=== PATIENT | male | born 1935 | race Two or more races ===

== ENCOUNTER 2019-12-16 05:13 | Observation (INO) | payer MEDICARE ==
--- NOTE | 2019-12-16 05:16 | ED ---
General Adult HPI - General Stated complaint: Blurred vision Time Seen by Provider: 12/16/19 05:16 - History of Present Illness Initial comments: Robbi is an 84 yo male who is brought to the ER this morning by ambulance for evaluation of vision changes and headaches. Patient is somewhat of a poor historian he does state that he has poor vision he is supposed to wear glasses he was not wearing his glasses this morning. He states that his vision is been chronically worsening recently however he got up in 3am to use the restroom, states that he couldn't see anything. He states that now he feels like he can see light and shapes. 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 states the patient has had bad eyesite since a cataract procedure years ago, she states he developed "water in his eyes" She states he has not followed up with Opthalmology in >1 year - Related Data Allergies Allergy/AdvReac Type Severity Reaction Status Date / Time No Known Allergies Allergy Verified 12/16/19 05:35 Review of Systems ROS Statement: Those systems with pertinent positive or pertinent negative responses have been documented in the HPI. ROS Other: All systems not noted in ROS Statement are negative. General Exam - General Exam Comments Initial Comments: Physical Exam GENERAL: Patient is well-developed and well-nourished. Patient is nontoxic and well-hydrated and is in no distress. HENT: Normocephalic, Atraumatic. EYES: PERRL, EOMI No retinal hemorrhage Pressure LEFT eye: 14, 14, 16 Pressure RIGHT eye: 16, 17, 17 Vision left eye: 2/70 Vision right eye: 20/50 PULMONARY: Unlabored respirations. CARDIOVASCULAR: There is a regular rate and rhythm without any murmurs gallops or rubs. ABDOMEN: Soft and nontender with normal bowel sounds. SKIN: Skin is clear with no lesions or rashes and otherwise unremarkable. : Deferred NEUROLOGIC: Patient is alert and oriented x3. Moving all extremities spontaneously MUSCULOSKELETAL: Normal extremities with adequate strength and full range of motion. No lower extremity swelling or edema. No calf tenderness. PSYCHIATRIC: Normal psychiatric evaluation. Course Vital Signs 12/16/19 12/16/19 05:27 07:18 Temperature 97.3 F L Pulse Rate 65 63 Respiratory 18 18 Rate Blood Pressure 176/74 156/78 O2 Sat by Pulse 97 98 Oximetry EKG Findings - EKG Comments: EKG Findings:: EKG was obtained as part of a stroke workup, EKG was obtained at 5:37 AM, rate of 61 rhythm is sinus with a right bundle branch block, GA prolonged at 198, QRS 154, QTC [address] elevations or depressions no evidence of acute ischemia or infarction. No previous for comparison. Medical Decision Making - Medical Decision Making The patient was seen and evaluated history is obtained from the patient, EMS and 84-year-old gentleman with what appears to be chronic vision issues she reported may be a transient loss of vision this morning when ambulating to the restroom, no lightheadedness to chest pain no palpitations no syncopal episode Patient reports his vision is still bad but has improved since 3 AM Patient also complains of a chronic headache As ago exam reveals an elderly gentleman in no acute distress, pupils are equal and round he has had cataract surgery Pressures are normal bilaterally CT and CTA resulted with chronic changes, no acute findings, Carotid stenosis 65% and 35% Patient care discussed with Dr Osorio who accepts admission with consults to neurology and ophthalmology - Lab Data Result diagrams: 12/16/19 05:34 12/16/19 05:34 Lab Results 12/16/19 12/16/19 12/16/19 Range/Units 05:34 05:34 05:34 WBC 7.6 (3.8-10.6) k/uL RBC 4.75 (4.30-5.90) m/uL Hgb 14.2 (13.0-17.5) gm/dL Hct 43.2 (39.0-53.0) % MCV 91.0 (80.0-100.0) fL MCH 29.9 (25.0-35.0) pg MCHC 32.8 (31.0-37.0) g/dL RDW 13.6 (11.5-15.5) % Plt Count 192 (150-450) k/uL Neutrophils % 68 % Lymphocytes % 20 % Monocytes % 6 % Eosinophils % 3 % Basophils % 0 % Neutrophils # 5.2 (1.3-7.7) k/uL Lymphocytes # 1.5 (1.0-4.8) k/uL Monocytes # 0.5 (0-1.0) k/uL Eosinophils # 0.2 (0-0.7) k/uL Basophils # 0.0 (0-0.2) k/uL PT 10.8 (9.0-12.0) sec INR 1.0 (<1.2) APTT 22.1 (22.0-30.0) sec Sodium 140 (137-145) mmol/L Potassium 4.3 (3.5-5.1) mmol/L Chloride 105 (98-107) mmol/L Carbon Dioxide 26 (22-30) mmol/L Anion Gap 9 mmol/L BUN 13 (9-20) mg/dL Creatinine 0.99 (0.66-1.25) mg/dL Est GFR (CKD-EPI)AfAm 81 (>60 ml/min/1.73 sqM) Est GFR (CKD-EPI)NonAf 70 (>60 ml/min/1.73 sqM) Glucose 146 H (74-99) mg/dL Calcium 9.6 (8.4-10.2) mg/dL Total Bilirubin 0.8 (0.2-1.3) mg/dL AST 35 (17-59) U/L ALT 19 (4-49) U/L Alkaline Phosphatase 69 (38-126) U/L Total Protein 7.8 (6.3-8.2) g/dL Albumin 4.8 (3.5-5.0) g/dL Disposition Clinical Impression: Vision loss, bilateral Disposition: ADMITTED IP TO THIS [facility] Condition: Stable Is patient prescribed a controlled substance at d/c from ED?: No Referrals: None,Stated [Primary Care Provider] - 1-2 days
[2019-12-16] MEDS ORDERED: PROPARACAINE 0.5% OPHTH DROPS 15 ML BTL BOTH EYES STA (05:31)
[2019-12-16 05:39] LABS: Basophils % (A) 0 %; Eosinophils # (A) 0.2 k/uL (0-0.7); Eosinophils % (A) 3 %; HCT 43.2 % (39.0-53.0); HGB 14.2 gm/dL (13.0-17.5); Lymphocytes # (A) 1.5 k/uL (1.0-4.8); Lymphocytes % (A) 20 %; MCH 29.9 pg (25.0-35.0); MCHC 32.8 g/dL (31.0-37.0); Mean Platelet Volume 7.7; Monocytes # (A) 0.5 k/uL (0-1.0); Monocytes % (A) 6 %; Neutrophils # (A) 5.2 k/uL (1.3-7.7); Neutrophils % (A) 68 %; Platelet Count 192 k/uL (150-450); RBC 4.75 m/uL (4.30-5.90); RDW 13.6 % (11.5-15.5); WBC 7.6 k/uL (3.8-10.6)
[2019-12-16 05:49] LABS: Partial Thromboplastin Time 22.1 sec (22.0-30.0); Prothrombin Time 10.8 sec (9.0-12.0)
[2019-12-16 05:50] LABS: Albumin 4.8 g/dL (3.5-5.0); Calcium 9.6 mg/dL (8.4-10.2); Potassium 4.3 mmol/L (3.5-5.1); Total Bilirubin 0.8 mg/dL (0.2-1.3); Total Protein 7.8 g/dL (6.3-8.2)
--- NOTE | 2019-12-16 06:54 | CT ---
EXAMINATION TYPE: CT brain wo con DATE OF EXAM: 12/16/2019 COMPARISON: None HISTORY: Neuro deficit, acute, stroke suspected CT DLP: 1089 mGycm Automated exposure control for dose reduction was used. Ventricles are top normal in size. There is some patchy hypodensity in the periventricular white jamaal er. There is no mass effect nor midline shift. There is no sign of intracranial hemorrhage. The main rium is intact. There is mild cerebral atrophy. IMPRESSION: Mild atrophy. Chronic small vessel ischemia. No acute intracranial abnormality.
--- NOTE | 2019-12-16 07:06 | CT ---
EXAMINATION TYPE: CT angio head neck DATE OF EXAM: 12/16/2019 COMPARISON: None HISTORY: Loss of vision CT DLP: mGycm Automated exposure control for dose reduction was used. CONTRAST: Performed , patient injected with mL of . The contrast was Isovue. There are 3-D post processed images. FINDINGS: There is normal branching pattern of the vessels on the aortic arch. There is bilateral arterial flow in the subclavian arteries. There is arterial flow in both vertebral arteries. There is arterial ladonna w in the common internal and external carotid arteries bilaterally. There is bilateral plaque formati on at the carotid artery bifurcations. There is estimated 60% stenosis due to plaque formation at the origin of the right internal carotid artery. There is approximate 35% stenosis origin of the left in ternal carotid artery. There is no evidence of carotid or vertebral artery aneurysm or dissection. There is arterial flow in the vertebrobasilar artery system. There is arterial flow in the anterior m iddle and posterior cerebral arteries bilaterally. There is normal contrast opacification of the veno us sinuses. There is no mass effect. There is no sign of intracranial aneurysm or neovascularity. I s ee no evidence of intracranial hemodynamic stenosis. IMPRESSION: Atherosclerotic plaque at the carotid artery bifurcations with estimated stenosis 60% on the right si de and 35% on the left side. No intracranial angiographic abnormality.
[2019-12-16] MEDS ORDERED: NALOXONE 0.4 MG/ML 1 ML VIAL IV PRN (07:50)
[2019-12-16] MEDS ORDERED: lisinopriL 20 MG TAB PO SCH (11:15)
[2019-12-16 11:34] LABS: Glucose,Whole Blood 172 mg/dL (75-99)
--- NOTE | 2019-12-16 13:30 | P.DS ---
Providers Date of admission: 12/16/19 07:54 Attending physician: Carson Walker Consults: 12/16/19 07:50 Consult Physician Urgent Consulting Provider: Jacques Torres Consult Reason/Comments: acute vision loss, improved upon arrival Do you want consulting provider notified?: Yes 12/16/19 07:56 Consult Physician Urgent Consulting Provider: Diego Morales Consult Reason/Comments: vision loss Do you want consulting provider notified?: Yes, Notify in am Primary care physician: Stated None Hospital Course: Please refer to HPI for further details Patient Condition at Discharge: Stable Plan - Discharge Summary Discharge Rx Participant: No New Discharge Prescriptions: New Clopidogrel Bisulfate [Plavix] 75 mg PO DAILY #30 tab Continue metFORMIN HCL [Glucophage] 500 mg PO HS lisinopriL 20 mg PO DAILY Metoprolol Tartrate [Lopressor] 50 mg PO HS Cholecalciferol [Vitamin D3 (25 Mcg = 1000 Iu)] 2,000 unit PO HS Aspirin EC [Ecotrin Low Dose] 81 mg PO HS amLODIPine [Norvasc] 5 mg PO HS Atorvastatin [Lipitor] 20 mg PO HS Discharge Medication List Aspirin EC [Ecotrin Low Dose] 81 mg PO HS 12/16/19 [History] Atorvastatin [Lipitor] 20 mg PO HS 12/16/19 [History] Cholecalciferol [Vitamin D3 (25 Mcg = 1000 Iu)] 2,000 unit PO HS 12/16/19 [History] Clopidogrel Bisulfate [Plavix] 75 mg PO DAILY #30 tab 12/16/19 [Rx] Metoprolol Tartrate [Lopressor] 50 mg PO HS 12/16/19 [History] amLODIPine [Norvasc] 5 mg PO HS 12/16/19 [History] lisinopriL 20 mg PO DAILY 12/16/19 [History] metFORMIN HCL [Glucophage] 500 mg PO HS 12/16/19 [History] Follow up Appointment(s)/Referral(s): Diego Morales MD [STAFF PHYSICIAN] - 1-2 Days None,Stated [Primary Care Provider] - 3 Days
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
[2019-12-16] MEDS: CLOPIDOGREL 75 MG TAB PO SCH (13:44)
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
--- NOTE | 2019-12-16 16:51 | CONS ---
CONSULTATION DATE OF SERVICE: 12/16/2019 at 2:45 pm. HISTORY: This is an 84-year-old white male who states that he woke up at 3:30 in the morning to urinate. After completing the task at hand, he went to return to his room and noticed that his vision was blurry in both eyes, spontaneously. The patient states that he could tell that the light was still on, though could not make out any shapes or anything of significance. The patient stated that both eyes were open when this occurred and the vision remained obscured for several hours after that. He was transported to the hospital where the vision slowly improved and upon awakening, the patient states that the vision has returned to its baseline level that he is accustomed to. The patient states that he has had continuing headaches since then along with one in the posterior aspect of his brain. PREVIOUS MEDICAL HISTORY: Significant for bilateral cataract surgery performed by Dr. 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 The history was also significant for diabetes. PHYSICAL EXAM: Visual acuity measured 20/50 right eye and 20/40 left eye. The pupils were equal and reactive to light. There was no afferent defect. Extraocular movements were full in all gaze positions. Visual wilson appeared full to confrontation testing with the exception of the right eye, upper right quadrant, appearing somewhat diminished during the exam today. On penlight exam, the lids were normal. There was a fallen lacrimal gland present on both the temporal aspect of both upper lids. The conjunctiva was quiet. The corneas were clear. The anterior chambers were quiet and bilateral posterior chamber intra-ocular lenses were noted in both eyes. IMPRESSION: 1. Temporary vision loss. As this patient's symptoms occurred bilaterally and simultaneously, it is very likely this represents something taking place in the brain and specifically in the one of the vision pathways or in the posterior aspect where the vision is interpreted. I would recommend an evaluation for the possibility of a TIA and/or evaluate stroke risks to see if the blood flow to the brain is at risk of interruption. I would also continue with his anticoagulant treatment until the tests have been completed. I will be happy to see this patient upon discharge where a more formal visual field test can be performed. Of course, I would also need to see records from Dr. Figueredo's office. The patient tells me that he has no desire to return to Dr. Figueredo's office again. 2. Diabetic retinopathy. The patient states that he has had fluid leakage "in the back of both eyes due to diabetes" and this quite possibly represents macular edema. Again, I would need to perform more thorough testing in my office in order to determine if he needs intervention at this time. Thank you very much for this consult. NATASHA / ANGELINA: [id number] /
--- NOTE | 2019-12-16 17:00 | ECHOF ---
Referral Reason:TIA, vision loss MEASUREMENTS -------- HEIGHT: 165.1 cm WEIGHT: 73.5 kg BP: IVSd: 1.1 cm (0.6 - 1.1) LVIDd: 4.6 cm (3.9 - 5.3) LVPWd: 1.3 cm (0.6 - 1.1) EDV(Teich): 96 ml IVSs: 1.6 cm LVIDs: 2.4 cm LVPWs: 1.5 cm %IVS Thck: 47 % ESV(Teich): 19 ml EF(Teich): 80 % %FS: 48 % SV(Teich): 77 ml IVC: 8.42 mm Ao Diam: 3.3 cm (2.0 - 3.7) LA Diam: 2.8 cm (2.7 - 3.8) EPSS: 2.3 cm MV E Everton: 0.56 m/s MV DecT: 242 ms MV Dec Wolfe: 2.3 m/s MV A Everton: 1.02 m/s MV E/A Ratio: 0.54 MV PHT: 70 ms MR Vmax: 1.72 m/s MR maxP.89 mmHg AV Vmax: 1.21 m/s AV maxP.82 mmHg AR Vmax: 1.73 m/s AR maxP.93 mmHg AR PHT: 723 ms AR Dec Time: 2492 ms AR Dec Wolfe: 0.7 m/s TR Vmax: 1.27 m/s TR maxP.42 mmHg RAP: 5.00 mmHg RVSP: 11.42 mmHg MV EF SLOPE: 115.61 mm/s (70 - 150) MV EXCURSION: 25.14 mm (> 18.000) FINDINGS -------- This was a technically difficult study with suboptimal views. The left ventricular size is normal. There is borderline concentric left ventricular hypertrophy. Overall left ventricular systolic function is normal with, an EF between 55 - 60 %. The right ventricle is normal in size. The left atrial size is normal. The right atrial size is normal. 5.0mg of Lumason was utilized for enhancement of images IAS not well Visualized. Poor quality images, Bubble study not performed. The aortic valve is trileaflet and appears structurally normal. The mitral valve is normal. There is trace mitral regurgitation. The tricuspid valve appears structurally normal. Trace tricuspid regurgitation present. Right umer tricular systolic pressure is normal at < 35 mmHg. There is no pulmonic regurgitation present. The aortic root size is normal. Normal inferior vena cava with normal inspiratory collapse consistent with estimated right atrial pre ssure of 5 mmHg. There is no pericardial effusion. CONCLUSIONS -------- 1. The left ventricular size is normal. 2. There is borderline concentric left ventricular hypertrophy. 3. Overall left ventricular systolic function is normal with, an EF between 55 - 60 %. 4. IAS not well Visualized. Poor quality images, Bubble study not performed. 5. There is trace mitral regurgitation. 6. Trace tricuspid regurgitation present. 7. There is no pericardial effusion. [employer]MENT CHAIR: Valentine Wolfe RDCS
[2019-12-16 17:03] LABS: Glucose,Whole Blood 129 mg/dL (75-99)
[2019-12-16 21:17] LABS: Glucose,Whole Blood 115 mg/dL (75-99)
[2019-12-16] MEDS: CHOLECALCIFEROL 1,000 UNIT TAB PO SCH (21:17)
[2019-12-16] MEDS: METOPROLOL TARTRATE 50 MG TAB PO SCH (21:17)
[2019-12-16] MEDS: ATORVASTATIN 20 MG TAB PO SCH (21:17)
[2019-12-16] MEDS: ASPIRIN 81 MG PO SCH (21:17)
[2019-12-16] MEDS: metFORMIN 500 MG TAB PO SCH (21:17)
[2019-12-16] MEDS: lisinopriL 20 MG TAB PO SCH (21:17)
[2019-12-16] MEDS: amLODIPine 5 MG TAB PO SCH (21:17)
[2019-12-16 21:21] LABS: Hemoglobin A1C 6.3 % (4.0-6.0)
[2019-12-17 06:06] LABS: Glucose,Whole Blood 135 mg/dL (75-99)
[2019-12-17 08:59] LABS: Cholesterol 127 mg/dL (<200); HDL Cholesterol 42 mg/dL (40-60); LDL Cholesterol,Calculated 47 mg/dL (0-99); Triglycerides 192 mg/dL (<150)
[2019-12-17] MEDS: CLOPIDOGREL 75 MG TAB PO SCH (09:23)
--- NOTE | 2019-12-17 10:31 | XR ---
EXAMINATION TYPE: XR chest 2V DATE OF EXAM: 12/17/2019 COMPARISON: NONE TECHNIQUE: PA and lateral views submitted. HISTORY: Pneumonia FINDINGS: The lungs are clear and there is no pneumothorax, pleural effusion, or focal pneumonia. Arthropathy of the shoulders. No overt failure. No pneumothorax. No pleural effusion. Hyperinflation suggests CO PD. Hypertrophic and degenerative change of the spine. IMPRESSION: 1. No acute process. Correlate for COPD.
--- NOTE | 2019-12-17 10:32 | P.DS ---
Providers Date of admission: 12/16/19 07:54 Attending physician: Carson Walker Consults: 12/16/19 07:50 Consult Physician Urgent Consulting Provider: Jacques Torres Consult Reason/Comments: acute vision loss, improved upon arrival Do you want consulting provider notified?: Yes 12/16/19 07:56 Consult Physician Urgent Consulting Provider: Diego Morales Consult Reason/Comments: vision loss Do you want consulting provider notified?: Yes, Notify in am Primary care physician: Stated None Hospital Course: 84-year-old was male came in with the complaints of her transient loss of vision or blurry vision predominantly in the left eye. Patient is also comparing of headache all the symptoms resolved at this time. Patient did have significant visual issues I issues in the past patient had cataract surgeries in both eyes. Patient's symptoms only lasted for a few minutes patient denied any weakness. Patient had ESR of less than 5. Patient denied any nausea vomiting. Patient did complaining of watering and ice but this is something chronic. Patient denied any floaters denied any curtain falling sensation. 12/17/2019 Patient was evaluated by neurology and ophthalmology an ophthalmology place patient may have possible vascular accident because of which patient underwent workup for that, echocardiac exam is within normal limits CT angios of the cavitates did show some atherosclerotic occlusive disease but not significant. That it needs intervention. If cleared by neurology patient will be discharged today as we cannot get an MRI because of shortness limb his eyes from accident in the past. Plavix was added and patient already takes aspirin at home. Although patient is having some hallucinations which appeared to be tactile hallucinations no clinical evidence of infection I'll obtain a chest x-ray and if Normal patient will be discharged and. Patient is not on any medications that can cause hallucinations. Lisa lesions may be related to hospitalization related delirium expected to improve upon discharge. PHYSICAL EXAMINATION: GENERAL: The patient is alert and oriented x3, not in any acute distress. Well developed, well nourished. HEENT: Pupils are round and equally reacting to light. EOMI. No scleral icterus. No conjunctival pallor. Normocephalic, atraumatic. No pharyngeal erythema. No thyromegaly. CARDIOVASCULAR: S1 and S2 present. No murmurs, rubs, or gallops. PULMONARY: Chest is clear to auscultation, no wheezing or crackles. ABDOMEN: Soft, nontender, nondistended, normoactive bowel sounds. No palpable organomegaly. MUSCULOSKELETAL: No joint swelling or deformity. EXTREMITIES: No cyanosis, clubbing, or pedal edema. NEUROLOGICAL: Gross neurological examination did not reveal any focal deficits. SKIN: No rashes. Assessment and Plan Plan: -Transiant sensation of visual loss: Patient underwent workup for stroke so far negative although patient is again did show some 60% stenosis on the right side and 35% stenosis on the left side in carotids patient was evaluated in neurology patient may have transient ischemic attack patient was started on Plavix in addition to aspirin he is taking at home, patient was a valid by ophthalmology. -Coronary artery disease Type 2 diabetes mellitus Gastroesophageal reflux disease -Hypertension -Benign prostatic hypertrophy -Possible Hospitalization related delirium Patient Condition at Discharge: Stable Plan - Discharge Summary Discharge Rx Participant: No New Discharge Prescriptions: New Clopidogrel Bisulfate [Plavix] 75 mg PO DAILY #30 tab Continue metFORMIN HCL [Glucophage] 500 mg PO HS lisinopriL 20 mg PO DAILY Metoprolol Tartrate [Lopressor] 50 mg PO HS Cholecalciferol [Vitamin D3 (25 Mcg = 1000 Iu)] 2,000 unit PO HS Aspirin EC [Ecotrin Low Dose] 81 mg PO HS amLODIPine [Norvasc] 5 mg PO HS Atorvastatin [Lipitor] 20 mg PO HS Discharge Medication List Aspirin EC [Ecotrin Low Dose] 81 mg PO HS 12/16/19 [History] Atorvastatin [Lipitor] 20 mg PO HS 12/16/19 [History] Cholecalciferol [Vitamin D3 (25 Mcg = 1000 Iu)] 2,000 unit PO HS 12/16/19 [History] Clopidogrel Bisulfate [Plavix] 75 mg PO DAILY #30 tab 12/16/19 [Rx] Metoprolol Tartrate [Lopressor] 50 mg PO HS 12/16/19 [History] amLODIPine [Norvasc] 5 mg PO HS 12/16/19 [History] lisinopriL 20 mg PO DAILY 12/16/19 [History] metFORMIN HCL [Glucophage] 500 mg PO HS 12/16/19 [History] Follow up Appointment(s)/Referral(s): Caro Virgen MD [REFERRING] - 1 Week (Neurologist - office will call you with a follow up appointment. ) Diego Morales MD [STAFF PHYSICIAN] - 12/18/19 10:15 am ([place] office for this appointment. [address], right next to [facility]. ) Marcio Stein DO [Doctor of Osteopathic Medicine] - 12/22/19 9:20 am Patient Instructions/Handouts: Transient Ischemic Attack (DC), Safe Use of Antiplatelet Medication (DC) Discharge Disposition: HOME SELF-CARE
[2019-12-17 11:58] LABS: Glucose,Whole Blood 138 mg/dL (75-99)
[2019-12-17 13:40] VITALS: BMI 26.2
[2019-12-17 13:46] LABS: Appearance,Urine Cloudy (Clear); Bacteria,Urine Rare /hpf; Bilirubin,Urine Negative (Negative); Blood,Urine Small (Negative); Color,Urine Yellow; Glucose,Urine (UA) Negative (Negative); Hyaline Casts,Urine 6 /lpf (0-2); Ketones,Urine Trace (Negative); Leukocyte Esterase,Urine Negative (Negative); Mucus,Urine Moderate /hpf; Nitrite,Urine Negative (Negative); Protein,Urine 1+ (Negative); RBC,Urine 1 /hpf (0-5); Specific Gravity,Urine 1.027 (1.001-1.035); Squamous Epithelial Cell,Urine <1 /hpf (0-4); WBC,Urine 4 /hpf (0-5)
[2019-12-17 16:42] LABS: Glucose,Whole Blood 156 mg/dL (75-99)
--- NOTE | 2019-12-17 17:21 | CT ---
EXAMINATION TYPE: CT brain wo con DATE OF EXAM: 12/17/2019 COMPARISON: Yesterday HISTORY: ams, confusion CT DLP: 1091.4 mGycm Automated exposure control for dose reduction was used. There is cerebral cortical atrophy. There is no mass effect nor midline shift. There is no sign of in tracranial hemorrhage. The calvarium is intact. Skull base is intact. There is some mild hypodensity in the periventricular white matter. IMPRESSION: Cerebral atrophy. Mild chronic small vessel ischemia. No change compared to yesterday.
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
[2019-12-17] MEDS ORDERED: LORazepam 2 MG/ML INJ IV PRN (18:27)
[2019-12-17 20:00] LABS: Glucose,Whole Blood 124 mg/dL (75-99)
[2019-12-17] MEDS: ATORVASTATIN 20 MG TAB PO SCH (20:14)
[2019-12-17] MEDS: METOPROLOL TARTRATE 50 MG TAB PO SCH (20:14)
[2019-12-17] MEDS: amLODIPine 5 MG TAB PO SCH (20:15)
[2019-12-17] MEDS: lisinopriL 20 MG TAB PO SCH (20:15)
[2019-12-17] MEDS: ASPIRIN 81 MG PO SCH (20:15)
[2019-12-17] MEDS: metFORMIN 500 MG TAB PO SCH (20:15)
[2019-12-17] MEDS: CHOLECALCIFEROL 1,000 UNIT TAB PO SCH (20:15)
[2019-12-18 06:11] LABS: Glucose,Whole Blood 119 mg/dL (75-99)
[2019-12-18 09:40] VITALS: PULSE 68
[2019-12-18] MEDS: CLOPIDOGREL 75 MG TAB PO SCH (10:14)
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
[2019-12-18 11:57] VITALS: BP 164/74; RESP 16; TEMP 97.6
[2019-12-18 12:14] LABS: Glucose,Whole Blood 107 mg/dL (75-99)
[2019-12-18] MEDS ORDERED: risperiDONE 0.5 MG TAB PO PRN (13:48)
--- NOTE | 2019-12-18 13:51 | P.PN ---
Subjective Progress Note Date: 12/18/19 Patient was seen for a follow-up. Patient's family members were not present. Patient very emotional, crying. He states that he was feeling the sensation of tunnel explosion that happened over 28 years ago. Patient has PTSD. Patient was actively hallucinating last night. No other focal symptoms. No slurred speech facial droop focal numbness tingling or weakness. No headaches. Patient's telemetry monitoring showing normal sinus rhythm with sinus bradycardia. Current blood sugar 183. Objective - Vital Signs Vital signs: Vital Signs Temp 97.6 F 12/18/19 11:55 Pulse 68 12/18/19 11:55 Resp 16 12/18/19 11:55 BP 164/74 12/18/19 11:55 Pulse Ox 96 12/18/19 11:55 Intake & Output 12/17/19 12/18/19 12/18/19 18:59 06:59 18:59 Intake Total 240 Output Total 50 Balance -50 240 Weight 71.3 kg 70.6 kg Intake: Oral 240 Output: Urine 50 Other: # Voids 1 1 - Exam Patient's mental status appears intact with normal level of alertness. Patient is very emotional, crying, depressed. He has history of PTSD. Patient's pupils are round and reacting. Visual wilson are full on confrontation with no neglect. Patient has mild right facial asymmetry, although patient's son states is his baseline. On muscle strength testing there is no drift and the strength is normal in arms and legs no ataxia. Sensations are equal with no neglect. Tone and bulk of muscles and gait normal. - Labs CBC & Chem 7: 12/16/19 05:34 12/16/19 05:34 Labs: Abnormal Lab Results - Last 24 Hours (Table) 12/17/19 12/17/19 12/17/19 Range/Units 13:20 16:41 19:58 POC Glucose (mg/dL) 156 H 124 H (75-99) mg/dL Urine Protein 1+ H (Negative) Urine Ketones Trace H (Negative) Urine Blood Small H (Negative) Urine Bacteria Rare H (None) /hpf Hyaline Casts 6 H (0-2) /lpf Urine Mucus Moderate H (None) /hpf 12/18/19 12/18/19 Range/Units 06:09 11:25 POC Glucose (mg/dL) 119 H 107 H (75-99) mg/dL Urine Protein (Negative) Urine Ketones (Negative) Urine Blood (Negative) Urine Bacteria (None) /hpf Hyaline Casts (0-2) /lpf Urine Mucus (None) /hpf Assessment and Plan Assessment: * Possible TIA manifesting with transient bilateral vision loss, that resolved in an hour. No evidence of large vessel occlusive disease noted on the CTA of head and neck. * Hypertension * Diabetes * Hyperlipidemia * PTSD/depression. Plan: * Patient's hallucinations is likely related to delirium. Patient has history of PTSD. Psychiatry has been consulted. * Repeat computed tomography scan of head yesterday revealed cerebral atrophy with no acute change. Patient cannot have MRI because of presence of metallic fragments. Patient or his family denies any previous history of dementia. Exact cause of hallucinations uncertain. Possible mild hospital-induced delirium. * ESR was 6. CRP <5.0. Doubt temporal arteritis. * Hemoglobin A1c 6.5, fasting a.m. lipid panel showed cholesterol 127, LDL 47, HDL 42 and triglycerides 192. Continue Lipitor. DOMINIC negative. TSH normal on 01/01/2019. * Continue Plavix 75 mg daily for possible small vessel disease/stroke prevention. * Ophthalmology input appreciated. Suspect TIA, no ocular abnormality identified. * 2-D echo showed normal left ventricular size. Borderline concentric LVH. EF is 55-60%. Interatrial septum not well visualized. Bubble study not performed. No obvious embolic source. * Neurologically clear, if cleared by psychiatry/medicine.
--- NOTE | 2019-12-18 18:04 | CONS ---
CONSULTATION REASON FOR CONSULTATION: Hallucinations. The patient was seen, and his and his son were present during this evaluation. HISTORY OF PRESENT ILLNESS: The patient presented to the emergency room with complaints that he lost his vision. He was seen by a neurologist who did recommend starting the patient on Plavix. Currently the patient can see, and he even stated that he can read anything. However, he was confused. He stated that he does feel that he is in the kitchen and he has been seeing bugs. His son stated that he started seeing bugs just yesterday; it was the night of 12/15, according to his , "because they tried to move him from his room in the middle of night, so he got very confused." His son stated that he was easily agitated yesterday and he was given Ativan. Today patient is very cooperative, not confused. He is alert and oriented. He stated that he is still not able to know what happened to him a couple of days ago, but he said, "The bugs are not so many as before." Neurology consultation was appreciated, as his assessment stated that most probably the patient has TIA versus temporal arteritis, and he stated there is no evidence of large vessel occlusive noted on the CT scan. He did recommend to put the patient on Plavix in addition to the baby aspirin. MEDICAL HISTORY: 1. Coronary artery disease. 2. Hypertension. 3. Diabetes. 4. Hyperlipidemia. 5. History of TIA. PAST PSYCHIATRIC HISTORY: There is no previous inpatient or outpatient, and he never had been seen by a psychiatrist prior to this. SUBSTANCE ABUSE HISTORY: He denied any alcohol or illicit drug use. FAMILY PSYCHIATRIC AND SUBSTANCE ABUSE HISTORY: Per his son, he stated there is no history of dementia or mental illness in the family. SOCIAL HISTORY: The patient is retired. 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 He stated that today is the anniversary. He has 4 grown-up sons. His hobby after group home is working on tractors, and he was doing this just one day prior to his admission. Currently he is collecting Social Security and a pension and he lives in his house with his , who was working as a nurse aide in a custodial. MENTAL STATUS EXAMINATION: The patient appears his stated age. He is cooperative, appears to have fair hygiene and grooming, wearing a hospital gown. He gives very good eye contact. He is very polite. There is no agitation. He still is confused, and he is thinking that he is in the kitchen, not the hospital. He stated that he is still seeing bugs, but they are much less than before, but he denied any auditory hallucinations. He denied having any suicidal or homicidal ideation, intent or plan. His speech is logical. He is able to remember the [place] president. Then he said, "It's Mr. Cole, but I don't like him." His insight and judgment are fair. IMPRESSION: Delirium reaction, likely vascular due to transient ischemic attack or hospital stay. PLAN: At this time, the patient does not meet criteria for inpatient psychiatric admission. I do recommend avoiding any narcotic and any benzodiazepine. Frequent reorientation and minimize use of any restraint. I will add Risperdal 0.5 at bedtime as needed. I tried to discuss different options of antipsychotics. However, it seems that the patient's is aware about most of the antipsychotics, as she worked for more than 40 years in a custodial. and she was very resistant that I will start her on schedule dose of antipsychotic But at this time we will continue to follow along while he is on the medical floor. Please contact us with any questions. MMISIDRAL / IJN: [id number] / MICHAEL
== END 2019-12-18 17:03 | disposition home or self-care (01) ==
LOC: EC 05:13 → 1SOBS 07:54 → 3SCARD 23:41 → OBSVTOIN 12-18 10:14 → INTOOBSV 12-18 10:14 → UNDODISIN 12-18 17:03
PROVIDERS: ADMIT Hospitalist; ATTEND Hospitalist
DX: H53.123 Transient visual loss, bilateral (principal); I65.23 Occlusion and stenosis of bilateral carotid arteries; G89.29 Other chronic pain; R51 Headache; R44.2 Other hallucinations; R44.1 Visual hallucinations; R41.0 Disorientation, unspecified; R45.1 Restlessness and agitation; I45.10 Unspecified right bundle-branch block; R94.31 Abnormal electrocardiogram [ECG] [EKG]; R13.10 Dysphagia, unspecified; R82.71 Bacteriuria; R41.3 Other amnesia; E11.319 Type 2 diabetes mellitus with unspecified diabetic retinopathy without macular edema; K21.9 Gastro-esophageal reflux disease without esophagitis; I10 Essential (primary) hypertension; N40.0 Benign prostatic hyperplasia without lower urinary tract symptoms; I25.10 Atherosclerotic heart disease of native coronary artery without angina pectoris; F43.10 Post-traumatic stress disorder, unspecified; R00.1 Bradycardia, unspecified; F32.9 Major depressive disorder, single episode, unspecified; E78.5 Hyperlipidemia, unspecified; G31.9 Degenerative disease of nervous system, unspecified; I25.2 Old myocardial infarction; Z87.820 Personal history of traumatic brain injury; Z97.2 Presence of dental prosthetic device (complete) (partial); Z98.41 Cataract extraction status, right eye; Z98.42 Cataract extraction status, left eye; Z96.1 Presence of intraocular lens; Z79.82 Long term (current) use of aspirin; Z86.19 Personal history of other infectious and parasitic diseases; Z90.89 Acquired absence of other organs; Z86.69 Personal history of other diseases of the nervous system and sense organs; Z95.5 Presence of coronary angioplasty implant and graft; Z98.890 Other specified postprocedural states; Z79.899 Other long term (current) drug therapy; Z79.84 Long term (current) use of oral hypoglycemic drugs; Z86.73 Personal history of transient ischemic attack (TIA), and cerebral infarction without residual deficits; Z18.10 Retained metal fragments, unspecified; Z82.49 Family history of ischemic heart disease and other diseases of the circulatory system
CPT/HCPCS: 96365; 96375; 99285; 36415; 93005; 80061; 80053; 85652; 85025; 85610; 85730; 86140; 81001; 86038; 83036; 71046; 70496; 70450 ×2; 70498; G0378 ×3; C8929; J2060; J0696; Q9950; Q9967; 93306

== ENCOUNTER 2022-06-17 18:03 | Observation (INO) | payer MEDICARE ==
[2022-06-17 18:19] LABS: Glucose,Whole Blood 171 mg/dL (70-110)
[2022-06-17 18:34] LABS: Basophils % (A) 0 %; Eosinophils % (A) 0 %; HCT 42.5 % (39.0-53.0); HGB 14.3 gm/dL (13.0-17.5); Lymphocytes # (A) 0.8 k/uL (1.0-4.8); Lymphocytes % (A) 7 %; MCH 30.3 pg (25.0-35.0); MCHC 33.7 g/dL (31.0-37.0); MCV 89.9 fL (80.0-100.0); Mean Platelet Volume 7.9; Monocytes # (A) 0.5 k/uL (0-1.0); Monocytes % (A) 4 %; Neutrophils # (A) 10.3 k/uL (1.3-7.7); Neutrophils % (A) 87 %; Platelet Count 224 k/uL (150-450); RBC 4.73 m/uL (4.30-5.90); RDW 13.7 % (11.5-15.5); WBC 11.8 k/uL (3.8-10.6)
[2022-06-17] MEDS ORDERED: ONDANSETRON 4 MG/2 ML VIAL IVP STA (18:34)
--- NOTE | 2022-06-17 18:37 | CT ---
CT scan of the brain. History weakness. Comparison 12/17/2019. FINDINGS: There is cerebral cortical atrophy. There is mild hypodensity in the periventricular white matter. Th ere is no mass effect or midline shift. No sign of intracranial hemorrhage. Calvarium is intact. Ther e is normal aeration of the mastoid sinuses. IMPRESSION: Cerebral atrophy and chronic white matter changes likely from microvascular ischemia. No acute intrac ranial abnormality. No change.
[2022-06-17 18:45] LABS: Albumin 4.7 g/dL (3.5-5.0); Calcium 10.2 mg/dL (8.4-10.2); Potassium 4.4 mmol/L (3.5-5.1); Total Bilirubin 0.9 mg/dL (0.2-1.3)
[2022-06-17] MEDS ORDERED: SODIUM CHLORIDE 0.9% 1,000 ML IV STA (18:57)
--- NOTE | 2022-06-17 18:57 | ED ---
Altered Mental Status HPI - General Chief Complaint: Altered Mental Status Stated Complaint: High Blood Pressure Time Seen by Provider: 06/17/22 18:11 Source: patient, family (Spouse and son), RN notes reviewed Mode of arrival: ambulatory Limitations: no limitations - History of Present Illness Initial Comments: Patient is an 86-year-old male presenting to the emergency room from home with his spouse and son in regards to concerns of multiple symptoms. His spouse reports that he had elevated blood pressure in the 230s earlier this mor fadi but became concerned around 1:00 when he became more confused than baseline and further progressed around 4:30 when he had the inability to speak which was brief and then transition to garbled speech. His spouse reports a history of dementia diagnosed approximately 2 years ago with slow progression along with Parkinson's diagnosis with no significant symptoms. He is on blood pressure medications and reportedly took his medications this morning as prescribed. In addition to his neurological symptoms he has had nausea and vomiting that began around 1:00 as well. He denies any changes in vision, fall, focal weakness, shortness of breath, chest pain fevers or chills. In addition to his hype rtension, dementia, and Parkinson's history he has a past medical history significant for hyperlipidemia, CAD, GERD, diabetes and BPH. - Related Data Home Medications Medication Instructions Recorded Confirmed Atorvastatin [Lipitor] 20 mg PO DAILY 12/16/19 06/17/22 amLODIPine [Norvasc] 5 mg PO DAILY 12/16/19 06/17/22 metFORMIN HCL [Glucophage] 500 mg PO DAILY 12/16/19 06/17/22 Cholecalciferol [Vitamin D3 (25 25 mcg PO DAILY 06/17/22 06/17/22 Mcg = 1000 Iu)] lisinopriL [Zestril] 10 mg PO DAILY 06/17/22 06/17/22 Previous Rx's Medication Instructions Recorded Clopidogrel Bisulfate [Plavix] 75 mg PO DAILY #30 tab 12/16/19 Allergies Allergy/AdvReac Type Severity Reaction Status Date / Time No Known Allergies Allergy Verified 06/17/22 18:47 Review of Systems ROS Statement: Those systems with pertinent positive or pertinent negative responses have been documented in the HPI. ROS Other: All systems not noted in ROS Statement are negative. Past Medical History Past Medical History: Coronary Artery Disease (CAD), Diabetes Mellitus, Eye Disorder, GERD/Reflux, Hypertension, Memory Impairment, Myocardial Infarction ([place]), Prostate Disorder Additional Past Medical History / Comment(s): has 'pouch' in throat that affects ability to swallow, will nto have fixed. 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 Last Myocardial Infarction Date:: 2003 History of Any Multi-Drug Resistant Organisms: None Reported Past Surgical History: Tonsillectomy Additional Past Surgical History / Comment(s): heart cath with stents, bilateral knee surgery, bilateral cataract removal, right eye "burned a hole", replaced lens, had left foot surgery in the Past Anesthesia/Blood Transfusion Reactions: No Reported Reaction Past Psychological History: No Psychological Hx Reported Smoking Status: Never smoker Past Alcohol Use History: None Reported Past Drug Use History: None Reported - Past Family History Mother Family Medical History: Coronary Artery Disease (CAD) Father Family Medical History: Coronary Artery Disease (CAD) General Exam - General Exam Comments Initial Comments: GENERAL: No acute distress, well developed, well nourished. HEENT: Normocephalic, atraumatic. Pupils equal, round, reactive to light. Moist mucous membranes. EOMI. Very hard of hearing. LUNGS: No respiratory distress. Clear to auscultation, no adventitious sounds, no use of accessory muscles. HEART: Regular rate and rhythm systolic murmur without diastolic murmur, rub, or gallop. ABDOMEN: Normal bowel sounds. Soft, non-tender, non-distended. BACK: Normal inspection. EXTREMITIES: No edema. No tenderness. Moves all extremities. Light sensation intact to all extremities NEUROLOGIC: Alert & oriented x 3. CN II-XII grossly intact. Slow but appropriate responses. Slightly garbled speech. Left side mouth facial droop. NIH score 4 PSYCHIATRIC: Flat affect and behavior. DERMATOLOGIC: Skin intact, without rashes or lesions noted. Limitations: no limitations Course Vital Signs 06/17/22 06/17/22 06/17/22 18:05 18:30 18:45 Temperature 98.9 F Pulse Rate 65 71 74 Respiratory 20 18 18 Rate Blood Pressure 175/70 163/73 163/73 O2 Sat by Pulse 99 99 99 Oximetry 06/17/22 20:09 Temperature Pulse Rate 64 Respiratory 14 Rate Blood Pressure 164/76 O2 Sat by Pulse 97 Oximetry Medical Decision Making - Medical Decision Making Was pt. sent in by a medical professional or institution ([facility]OVERTO Avila, MACHINE OVERHAULER, urgent care, hospital, or shelter...) When possible be specific @ -No Did you speak to anyone other than the patient for history (EMS, parent, family, police, friend...)? What history was obtained from this source @ -Spouse and son Did you review nursing and triage notes (agree or disagree)? Why? @ -I reviewed and agree with nursing and triage notes Were old charts reviewed (outside hosp., previous admission, EMS record, old EKG, old radiological studies, urgent care reports/EKG's, shelter records)? Report findings @ -Yes I reviewed neurology consult along with CAT scans completed 12/2019 Differential Diagnosis (chest pain, altered mental status, abdominal pain women, abdominal pain men, vaginal bleeding, weakness, fever, dyspnea, syncope, headache, dizziness, GI bleed, back pain, seizure, CVA, palpatations, mental health, musculoskeletal)? @ -Differential CVA Ischemic stroke, hemorrhagic stroke, brain tumor, atypical migraine, Wernicke's encephalopathy, seizure, multiple sclerosis, meningitis, encephalitis, hypoglycemia, Guillain-Wagner, electrolytes disturbance, myasthenia gravis.... This is not meant to be an all-inclusive list EKG interpreted by me (3pts min.). @ -Sinus rhythm with right bundle branch block, ventricular rate 61 bpm, HI interval 206 ms, QRS duration 162 ms QT/QTC 451/453 ms PRT axes 60, 35, 27 X-rays interpreted by me (1pt min.). @ -None done CT interpreted by me (1pt min.). @ -CT brain without contrast: No acute ischemia, hemorrhage or mass. CTA head and neck: U/S interpreted by me (1pt. min.). @ -None done What testing was considered but not performed or refused? (CT, X-rays, U/S, labs)? Why? @ -None What meds were considered but not given or refused? Why? @ -None Did you discuss the management of the patient with other professionals (professionals i.e. ROVERTO Avila, MACHINE OVERHAULER, lab, RT, psych nurse, psychologist social, care team assistant, teacher, senior compliance officer, case briefer)? Give summary @ -Dr. Sarmiento on-call neuro interventionalists per code stroke protocol at 1828 advising last known well presenting symptoms and imaging studies pending. He will return call after studies complete. Spoke with Dr. Esquivel on-call neurologist regarding patient's presentation and workup results. Patient to be evaluated by neurology in the morning and he requested Doppler to be ordered will order. Spoke with Dr. Sarmiento post imaging who advised neurology consult and 324 mg of aspirin will order. Spoke with Dr. Dailey covering for [facility] physicians regarding recommendations by neurology for observation admission and monitoring. He is excepting of his admission and reports no further orders at this time. Was smoking cessation discussed for >3mins.? @ -No Was critical care preformed (if so, how long)? @ -No Were there social determinants of health that impacted care today? How? (Homelessness, low income, unemployed, alcoholism, drug addiction, transportation, low edu. Level, literacy, decrease access to med. care, longterm, rehab)? @ -No Was there de-escalation of care discussed even if they declined (Discuss DNR or withdrawal of care, Hospice)? DNR status @ -No What co-morbidities impacted this encounter? (DM, HTN, Smoking, COPD, CAD, Cancer, CVA, ARF, Chemo, Hep., AIDS, mental health diagnosis, sleep apnea, morbid obesity)? @ -Dementia history with known mild memory impairment Was patient admitted / discharged? Hospital course, mention meds given and route, prescriptions, significant lab abnormalities, going to OR and other pertinent info. @ -86-year-old male presenting to the emergency room with spouse from home with concerns regarding altered mental status, hypertension this morning, difficulty in speech progressing to turbo discussed speech upon presentation with stated last known well at 1 PM today. Code stroke called at 181 due to last overall greater than 5 hours ago not a code alteplase candidate as risks outweigh benefits of alteplase administration; wrist benefits also outweighed by low NIH scale of 4 will proceed with stroke workup with CT brain and CTA head and neck will give Zofran for nausea and obtain labs of CBC, CMP, coags and troponin. CT brain without acute intracranial process. CTA head and neck did reveal 70% stenosis of right ICA and 30% stenosis left ICA which is unchanged compared to December 2019. Laboratory studies reveal slightly elevated WBC 11.8 neutrophils elevated 10.3 lymphocytes low 0.8 coags normal PT INR PTT 20.3 slightly low, BUN slightly elevated 23 creatinine normal glucose elevated 185 liver enzymes alkaline phosphate normal electrolytes normal troponin negative. Above findings discussed with patient and spouse. Advise recommendation of observation admission. Patient and family agreeable for admission. Spoke with Dr. Hou on- call neurologist regarding recommendation for neurology consult and observation admission. He is agreeable for consult advised to consult vascular given 70% stenosis to right ICA and obtain carotid Doppler will order. Spoke with Dr. Sarmiento again who advised neurology consult and aspirin 324 mg will give. Spoke with Dr. Dailey on for [facility] physicians in regards to recommendation of observation admission for altered mental status not baseline. He is excepting admission. Advise consult and orders per neurology placed no further orders from him at this time. Will admit patient in stable condition to observation unit under sound physicians for further evaluation and treatment of altered mental status. Undiagnosed new problem with uncertain prognosis? @ -No Drug Therapy requiring intensive monitoring for toxicity (Heparin, Nitro, Insulin, Cardizem)? @ -No Were any procedures done? @ -No Diagnosis/symptom? @ -Altered mental status Acute, or Chronic, or Acute on Chronic? @ -Acute Uncomplicated (without systemic symptoms) or Complicated (systemic symptoms)? @ -Complicated Side effects of treatment? @ -No Exacerbation, Progression, or Severe Exacerbation? @ -No Poses a threat to life or bodily function? How? (Chest pain, [place], [place], pneumonia, PE, COPD, DKA, ARF, appy, cholecystitis, CVA, Diverticulitis, Homicidal, Suicidal, threat to staff... and all critical care pts) @ -Yes. Diagnosis/symptom? @ -Nausea and vomiting Acute, or Chronic, or Acute on Chronic? @ -Acute Uncomplicated (without systemic symptoms) or Complicated (systemic symptoms)? @ -Uncomplicated Side effects of treatment? @ -none Exacerbation, Progression, or Severe Exacerbation] @ -no Poses a threat to life or bodily function? @ -no Case discussed with Dr. Max. - Lab Data Result diagrams: 06/17/22 18:27 06/17/22 18:27 Lab Results 06/17/22 06/17/22 06/17/22 Range/Units : 18: 18: WBC 11.8 H (3.8-10.6) k/uL RBC 4.73 (4.30-5.90) m/uL Hgb 14.3 (13.0-17.5) gm/dL Hct 42.5 (39.0-53.0) % MCV 89.9 (80.0-100.0) fL MCH 30.3 (25.0-35.0) pg MCHC 33.7 (31.0-37.0) g/dL RDW 13.7 (11.5-15.5) % Plt Count 224 (150-450) k/uL MPV 7.9 Neutrophils % 87 % Lymphocytes % 7 % Monocytes % 4 % Eosinophils % 0 % Basophils % 0 % Neutrophils # 10.3 H (1.3-7.7) k/uL Lymphocytes # 0.8 L (1.0-4.8) k/uL Monocytes # 0.5 (0-1.0) k/uL Eosinophils # 0.0 (0-0.7) k/uL Basophils # 0.0 (0-0.2) k/uL PT 11.0 (9.0-12.0) sec INR 1.1 (<1.2) APTT 20.3 L (22.0-30.0) sec Sodium (137-145) mmol/L Potassium (3.5-5.1) mmol/L Chloride (98-107) mmol/L Carbon Dioxide (22-30) mmol/L Anion Gap mmol/L BUN (9-20) mg/dL Creatinine (0.66-1.25) mg/dL Est GFR (CKD-EPI)AfAm (>60 ml/min/1.73 sqM) Est GFR (CKD-EPI)NonAf (>60 ml/min/1.73 sqM) Glucose (74-99) mg/dL POC Glucose (mg/dL) 171 H (70-110) mg/dL POC Glu Upsetter Setter Up ID Deisy Nix Calcium (8.4-10.2) mg/dL Total Bilirubin (0.2-1.3) mg/dL AST (17-59) U/L ALT (4-49) U/L Alkaline Phosphatase (38-126) U/L Troponin I (0.000-0.034) ng/mL Total Protein (6.3-8.2) g/dL Albumin (3.5-5.0) g/dL 06/17/22 06/17/22 Range/Units 18:27 18:27 WBC (3.8-10.6) k/uL RBC (4.30-5.90) m/uL Hgb (13.0-17.5) gm/dL Hct (39.0-53.0) % MCV (80.0-100.0) fL MCH (25.0-35.0) pg MCHC (31.0-37.0) g/dL RDW (11.5-15.5) % Plt Count (150-450) k/uL MPV Neutrophils % % Lymphocytes % % Monocytes % % Eosinophils % % Basophils % % Neutrophils # (1.3-7.7) k/uL Lymphocytes # (1.0-4.8) k/uL Monocytes # (0-1.0) k/uL Eosinophils # (0-0.7) k/uL Basophils # (0-0.2) k/uL PT (9.0-12.0) sec INR (<1.2) APTT (22.0-30.0) sec Sodium 139 (137-145) mmol/L Potassium 4.4 (3.5-5.1) mmol/L Chloride 101 (98-107) mmol/L Carbon Dioxide 28 (22-30) mmol/L Anion Gap 10 mmol/L BUN 23 H (9-20) mg/dL Creatinine 1.15 (0.66-1.25) mg/dL Est GFR (CKD-EPI)AfAm 67 (>60 ml/min/1.73 sqM) Est GFR (CKD-EPI)NonAf 58 (>60 ml/min/1.73 sqM) Glucose 185 H (74-99) mg/dL POC Glucose (mg/dL) (70-110) mg/dL POC Glu Upsetter Setter Up ID Calcium 10.2 (8.4-10.2) mg/dL Total Bilirubin 0.9 (0.2-1.3) mg/dL AST 34 (17-59) U/L ALT 33 (4-49) U/L Alkaline Phosphatase 78 (38-126) U/L Troponin I <0.012 (0.000-0.034) ng/mL Total Protein 8.0 (6.3-8.2) g/dL Albumin 4.7 (3.5-5.0) g/dL - Radiology Data Radiology results: report reviewed, image reviewed Disposition Clinical Impression: Altered mental status Disposition: ADMITTED IP TO THIS HOSP Condition: Stable Time of Disposition: 19:42
[2022-06-17 19:00] LABS: INR 1.1 (<1.2)
--- NOTE | 2022-06-17 19:02 | CT ---
EXAMINATION TYPE: CODE STROKE: CTA head neck DATE OF EXAM: 06/17/2022 COMPARISON: 12/16/2019 HISTORY: Neuro deficit, acute, stroke suspected. SCANNED BY PK CT DLP: 459.7 mGycm Automated exposure control for dose reduction was used. CONTRAST: Performed with IV Contrast, patient injected with 65 mL of Isovue 370. Images obtained from the aortic arch through the vertex of the brain with the IV contrast. There are 3-D post processed images. There is normal branching pattern of the great vessels on the aortic arch. There is arterial flow in the common internal and external carotid arteries bilaterally. There is mod erate calcified plaque formation at the carotid artery bifurcations. There is estimated 30% stenosis origin of the left internal carotid artery. There is estimated 70% stenosis origin of the right inter nal carotid artery. There is arterial flow in both vertebral arteries. There is arterial flow in the anterior middle and posterior cerebral arteries bilaterally. No mass ef fect. No evidence of intracranial aneurysm or neovascularity. No evidence of intracranial hemodynamic arterial stenosis. There is normal enhancement of the venous sinuses. IMPRESSION: Bilateral plaque formation at the carotid artery bifurcations and estimated 70% stenosis origin of th e right internal carotid artery and 30% stenosis origin left internal carotid artery. No significant change compared to old exam. No significant intracranial angiographic abnormality.
[2022-06-17 19:19] LABS: Partial Thromboplastin Time 20.3 sec (22.0-30.0)
[2022-06-17] MEDS ORDERED: NALOXONE 0.4 MG/ML 1 ML VIAL IV PRN (19:41)
[2022-06-17] MEDS ORDERED: ONDANSETRON 4 MG/2 ML VIAL IVP PRN (19:41)
[2022-06-17] MEDS ORDERED: ASPIRIN 81 MG PO STA (20:14)
[2022-06-17] MEDS ORDERED: ACETAMINOPHEN TAB 500 MG TAB PO PRN (20:15)
--- NOTE | 2022-06-17 20:47 | US ---
EXAMINATION TYPE: US carotid duplex BILAT DATE OF EXAM: 06/17/2022 COMPARISON: Same day CTA CLINICAL HISTORY: ICA stenosis. Stenosis, AMS TECHNIQUE: Carotid duplex ultrasound examination. Indirect Doppler criteria was utilized. FINDINGS: EXAM MEASUREMENTS: RIGHT: Peak Systolic Velocity (PSV) cm/sec ----- Right CCA: 54.9 ----- Right ICA: 116.1 ----- Right ECA: 109.7 ICA/CCA ratio: 2.1 RIGHT: End Diastole cm/sec ----- Right CCA: 6.0 ----- Right ICA: 9.5 ----- Right ECA: 0.0 LEFT: Peak Systolic Velocity (PSV) cm/sec ----- Left CCA: 98.5 ----- Left ICA: 136.8 ----- Left ECA: 284.2 ICA/CCA ratio: 1.4 LEFT: End Diastole cm/sec ----- Left CCA: 9.1 ----- Left ICA: 20.7 ----- Left ECA: 12.6 VERTEBRALS (direction of flow): Right Vertebral: Antegrade Left Vertebral: Antegrade Rhythm: Normal DYE WEIGHER HELPER NOTES: Heterogeneous plaque bilaterally with elevated velocities, more on left IMPRESSION: There is antegrade flow in the vertebral arteries. There is elevated velocity in the left internal ca rotid artery suggestive of 50-70% stenosis. There is bilateral plaque formation. There is close to 50 % stenosis in the right internal carotid artery. Criteria for Assigning % of Stenosis / Diameter reduction (Estimation based on the indirect measurements of the internal carotid artery velocities (ICA PSV). 1. Normal (no stenosis)=ICA PSV < 125 cm/s: ratio < 2.0: ICA EDV<40 cm/s. 2. Less than 50% stenosis=ICA PSV < 125 cm/s: ratio < 2.0: ICA EDV<40 cm/s. 3. 50 to 69% stenosis=ICA PSV of 125 to 230 cm/s: ration 2.0 ? 4.0: ICA EDV 40-100 cm/s. 4. Greater than 70% stenosis to near occlusion= ICA PSV > 230 cm/s: ratio > 4.0: ICA EDV > 100 cm/s. 5. Near occlusion= ICA PSV velocities may be low or undetectable: variable ratio and ICA EDV. 6. Total occlusion=unable to detect flow.
[2022-06-17] MEDS ORDERED: hydrALAZINE HCL 25 MG TAB PO STA (23:37)
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
[2022-06-18] MEDS: HEPARIN SODIUM,PORCINE/PF 5,000 UNIT/0.5 ML SYRINGE SQ SCH ×3 (02:44→15:03)
[2022-06-18 06:15] LABS: Glucose,Whole Blood 120 mg/dL (70-110)
[2022-06-18] MEDS: ASPIRIN 81 MG PO SCH (08:02)
[2022-06-18] MEDS: ATORVASTATIN 80 MG TAB PO SCH (08:02)
[2022-06-18 11:38] LABS: Glucose,Whole Blood 124 mg/dL (70-110)
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
--- NOTE | 2022-06-18 12:03 | P.PN ---
Subjective Progress Note Date: 06/18/22 The patient is an 86-year-old male with a PMH of mild dementia, Parkinson's, type II DM, hypertension, hyperlipidemia, history of CVA who presents to the emergency room with complaints of speech impairments. The patient reports that earlier today at around noon, the patient took a nap following a meal, and upon waking, he noticed a mild headache as well as garbled speech. The patient's family as per the documentation and reported that the patient had appeared to be confused at around 1 PM and had an episode of nausea and vomiting, with his symptoms persisting until around 4:30 PM when he developed the garbled speech. The patient states that the symptoms only lasted a few minutes and then resolved completely. He reported feeling at his baseline at the time of interview. The patient denied experiencing visual disturbances or focal weakness. He also denied gait abnormalities. Denied fever, chills, neck pain. The patient underwent an extensive evaluation in the emergency room with a CT brain that revealed findings consistent with microvascular ischemia with no acute abnormalities. CT angiogram of head and neck revealed 70% stenosis of the right ICA with 30% stenosis of the left ICA. An EKG had revealed sinus rhythm with sinus arrhythmia with a right bundle-branch block at 61 bpm. A carotid Doppler study revealed a 50-70% stenosis of the left ICA with 50% stenosis of the the right ICA. Laboratory evaluation was remarkable for leukocytosis of 11.8 and glucose 185. The case was reportedly discussed with the neuro battery recharger and the neurologist mechanical applications engineer by the ED provider. The patient was deemed to not be a candidate for TPA. A vascular surgery consult was recommended. Patient was seen and examined this morning. Patient reports exacerbation of his chronic lower back pain. His slurred speech and confusion has mostly resolved. He has no other complaints. General: non toxic, no distress, appears at stated age Derm: warm, dry Head: atraumatic, normocephalic, symmetric Eyes: EOMI, no lid lag, anicteric sclera Mouth: no lip lesion, mucus membranes moist Cardiovascular: S1S2 reg, no murmur Lungs: CTA bilateral, no rhonchi, no rales , no accessory muscle use Ext: no gross muscle atrophy, no edema, no contractures Neuro: CN II-XI grossly intact, no focal neuro deficits Psych: Alert, oriented, appropriate affect Aphasia, suspected TIA w/ R ICA stenosis Chronic conditions: Type II DM, hypertension, hyperlipidemia, Parkinson's Based on my assessment of this patient, this patient meets a high complexity level of care. I have reviewed the following salon sales consultant notes: None. I have reviewed the results of the following tests: [id number] glucose ranging from 120-171. I have ordered the following tests: MRI brain is ordered. Hemoglobin A1c and lipid panel ordered. Echocardiogram is pending. I have discussed the care of this patient with the following independent historian: None. I have independently interpreted the following test below: None. I have discussed the management of this patient with the following physician: The case was discussed extensively with Dr. Hou who was agreeable to pursue CVA workup. This patient has a high risk of morbidity due to the following reasons: Patient has an acute diagnosis of TIA that poses a threat to life or bodily function. CT angiogram of head and neck revealed 70% stenosis of the right ICA with 30% stenosis of the left ICA. Neurology and vascular surgery has been consulted. CVA workup underway. MRI brain, EEG and echocardiogram is ordered. Hemoglobin A1c and lipid panel ordered. PT and OT has been consulted to work with this patient. Patient currently on aspirin 81 mg by mouth daily, Lipitor 80 mg by mouth daily, Plavix 75 mg by mouth daily. Telemetry monitoring and advanced neurochecks ordered. Objective - Vital Signs Vital signs: Vital Signs Temp 97.8 F 06/18/22 08:01 Pulse 58 L 06/18/22 11:52 Resp 16 06/18/22 11:52 BP 132/62 06/18/22 11:52 Pulse Ox 98 06/18/22 11:52 FiO2 Intake & Output 06/17/22 06/18/22 06/18/22 18:59 06:59 18:59 Intake Total 245 Output Total 250 Balance -250 245 Weight 75.75 kg 75.75 kg Intake: IV 5 Invasive Line 1 5 Oral 240 Output: Urine 250 Other: Voiding Method Urinal Urinal # Voids 2 1 # Bowel Movements 0 - Labs CBC & Chem 7: 06/17/22 18:27 06/17/22 18:27 Labs: Abnormal Lab Results - Last 24 Hours (Table) 06/17/22 06/17/22 06/17/22 Range/Units 18:18 18:27 18:27 WBC 11.8 H (3.8-10.6) k/uL Neutrophils # 10.3 H (1.3-7.7) k/uL Lymphocytes # 0.8 L (1.0-4.8) k/uL APTT 20.3 L (22.0-30.0) sec BUN (9-20) mg/dL Glucose (74-99) mg/dL POC Glucose (mg/dL) 171 H (70-110) mg/dL 06/17/22 06/18/22 06/18/22 Range/Units 18:27 06:14 11:37 WBC (3.8-10.6) k/uL Neutrophils # (1.3-7.7) k/uL Lymphocytes # (1.0-4.8) k/uL APTT (22.0-30.0) sec BUN 23 H (9-20) mg/dL Glucose 185 H (74-99) mg/dL POC Glucose (mg/dL) 120 H 124 H (70-110) mg/dL
[2022-06-18] MEDS: CLOPIDOGREL 75 MG TAB PO SCH (12:16)
--- NOTE | 2022-06-18 16:01 | P.GSCN ---
History of Present Illness Consult date: 06/18/22 Reason for Consult: Carotid stenosis History of present illness: 86 year old gentleman with history of previous TIA with bilateral vision loss presented to the hospital after having difficulty with speaking. Per his his speech has been garbled. He was also complaining of a headache at the time. He denies any focal weakness, numbness, or difficulty swallowing. He states having a history of head trauma and his states he has some dementia and Parkinsons. He currently is feeling better and denies any fevers, chills, chest pain or shortness of breath. He underwent CTA and carotid dopplers which demonstrated contradicting results and stenosis of the carotid arteries. Review of Systems All systems: negative (what is mentioned in the PMH or HPI) Past Medical History Past Medical History: Coronary Artery Disease (CAD), Diabetes Mellitus, Eye Di sorder, GERD/Reflux, Hypertension, Memory Impairment, Myocardial Infarction (ME), Prostate Disorder Additional Past Medical History / Comment(s): has 'pouch' in throat that affects ability to swallow, will nto have fixed. tunnel explosion here in [place] suffered tbi. hepatitis B Last Myocardial Infarction Date:: 2003 History of Any Multi-Drug Resistant Organisms: None Reported Past Surgical History: Tonsillectomy Additional Past Surgical History / Comment(s): heart cath with stents, bilateral knee surgery, bilateral cataract removal, right eye "burned a hole", replaced lens, had left foot surgery in the Past Anesthesia/Blood Transfusion Reactions: No Reported Reaction Additional Past Anesthesia/Blood Transfusion Reaction / Comm: hypotension with anesthesia Past Psychological History: No Psychological Hx Reported Smoking Status: Never smoker Past Alcohol Use History: None Reported Past Drug Use History: None Reported - Past Family History Mother Family Medical History: Coronary Artery Disease (CAD) Father Family Medical History: Coronary Artery Disease (CAD) Medications and Allergies Home Medications Medication Instructions Recorded Confirmed Type Atorvastatin [Lipitor] 20 mg PO DAILY 12/16/19 06/17/22 History Clopidogrel Bisulfate [Plavix] 75 mg PO DAILY #30 tab 12/16/19 06/17/22 Rx amLODIPine [Norvasc] 5 mg PO DAILY 12/16/19 06/17/22 History metFORMIN HCL [Glucophage] 500 mg PO DAILY 12/16/19 06/17/22 History Cholecalciferol [Vitamin D3 (25 25 mcg PO DAILY 06/17/22 06/17/22 History Mcg = 1000 Iu)] lisinopriL [Zestril] 10 mg PO DAILY 06/17/22 06/17/22 History Allergies Allergy/AdvReac Type Severity Reaction Status Date / Time No Known Allergies Allergy Verified 06/17/22 18:47 Surgical - Exam Vital Signs Temp Pulse Resp BP Pulse Ox 98.9 F 65 20 175/70 99 06/17/22 18:05 06/17/22 18:05 06/17/22 18:05 06/17/22 18:05 06/17/22 18:05 - General well developed, well nourished, no distress - Eyes PERRL, normal ocular movement - ENT normal pinna, normal nares - Neck no masses, no bruits - Respiratory normal expansion - Cardiovascular Rhythm: regular - Abdomen Abdomen: soft, non tender - Integumentary no rash, no growths - Neurologic normal coordination, normal sensation - Psychiatric oriented to time, oriented to person, oriented to place, speech is normal left facial droop. tongue midline Palpable DP/PT pulses Results - Labs 06/17/22 18:27 06/17/22 18:27 Abnormal Lab Results - Last 24 Hours (Table) 06/17/22 06/17/22 06/17/22 Range/Units 18:18 18:27 18:27 WBC 11.8 H (3.8-10.6) k/uL Neutrophils # 10.3 H (1.3-7.7) k/uL Lymphocytes # 0.8 L (1.0-4.8) k/uL APTT 20.3 L (22.0-30.0) sec BUN (9-20) mg/dL Glucose (74-99) mg/dL POC Glucose (mg/dL) 171 H (70-110) mg/dL 06/17/22 06/18/22 06/18/22 Range/Units 18:27 06:14 11:37 WBC (3.8-10.6) k/uL Neutrophils # (1.3-7.7) k/uL Lymphocytes # (1.0-4.8) k/uL APTT (22.0-30.0) sec BUN 23 H (9-20) mg/dL Glucose 185 H (74-99) mg/dL POC Glucose (mg/dL) 120 H 124 H (70-110) mg/dL Diabetes panel 06/17/22 Range/Units 18:27 Sodium 139 (137-145) mmol/L Potassium 4.4 (3.5-5.1) mmol/L Chloride 101 (98-107) mmol/L Carbon Dioxide 28 (22-30) mmol/L BUN 23 H (9-20) mg/dL Creatinine 1.15 (0.66-1.25) mg/dL Glucose 185 H (74-99) mg/dL Calcium 10.2 (8.4-10.2) mg/dL AST 34 (17-59) U/L ALT 33 (4-49) U/L Alkaline Phosphatase 78 (38-126) U/L Total Protein 8.0 (6.3-8.2) g/dL Albumin 4.7 (3.5-5.0) g/dL Thyroid panel 06/18/22 Range/Units 11:41 TSH 0.924 (0.465-4.680) mIU/L Calcium panel 06/17/22 Range/Units 18:27 Calcium 10.2 (8.4-10.2) mg/dL Albumin 4.7 (3.5-5.0) g/dL Pituitary panel 06/17/22 06/18/22 Range/Units 18:27 11:41 Sodium 139 (137-145) mmol/L Potassium 4.4 (3.5-5.1) mmol/L Chloride 101 (98-107) mmol/L Carbon Dioxide 28 (22-30) mmol/L BUN 23 H (9-20) mg/dL Creatinine 1.15 (0.66-1.25) mg/dL Glucose 185 H (74-99) mg/dL Calcium 10.2 (8.4-10.2) mg/dL TSH 0.924 (0.465-4.680) mIU/L Adrenal panel 06/17/22 Range/Units 18:27 Sodium 139 (137-145) mmol/L Potassium 4.4 (3.5-5.1) mmol/L Chloride 101 (98-107) mmol/L Carbon Dioxide 28 (22-30) mmol/L BUN 23 H (9-20) mg/dL Creatinine 1.15 (0.66-1.25) mg/dL Glucose 185 H (74-99) mg/dL Calcium 10.2 (8.4-10.2) mg/dL Total Bilirubin 0.9 (0.2-1.3) mg/dL AST 34 (17-59) U/L ALT 33 (4-49) U/L Alkaline Phosphatase 78 (38-126) U/L Total Protein 8.0 (6.3-8.2) g/dL Albumin 4.7 (3.5-5.0) g/dL - Imaging Additional studies: CTA neck- reviewed, demonstrated patent bilateral carotid arteries without significant stenosis. Carotid Doppler- reviewed, <50% bilateral ICA stenosis Assessment and Plan Assessment: TIA Transient encephalopathy Carotid stenosis History of TIA DM History of dementia, Parkinson's Plan: Reviewed CTA and Carotid Doppler independently and disagree with report. Bila teral internal carotid arteries are patent, no significant stenosis noted. There is some calcification at the bifurcation. No vascular surgical intervention at this time. Continue medical management. Thank you for the consultation.
[2022-06-18 16:24] LABS: Glucose,Whole Blood 129 mg/dL (70-110)
[2022-06-18 19:39] LABS: Glucose,Whole Blood 146 mg/dL (70-110)
[2022-06-19] MEDS: HEPARIN SODIUM,PORCINE/PF 5,000 UNIT/0.5 ML SYRINGE SQ SCH ×3 (00:18→15:17)
[2022-06-19 06:26] LABS: Glucose,Whole Blood 115 mg/dL (70-110)
[2022-06-19] MEDS: ATORVASTATIN 80 MG TAB PO SCH (09:07)
[2022-06-19] MEDS: ASPIRIN 81 MG PO SCH (09:07)
[2022-06-19] MEDS: CLOPIDOGREL 75 MG TAB PO SCH (09:07)
--- NOTE | 2022-06-19 09:41 | EEG ---
ELECTROENCEPHALOGRAM REPORT PREAMBLE: This is an 86-year-old male with altered mental status. Rule out seizure. CURRENT MEDICATIONS: 1. Tylenol. 2. Aspirin. 3. Lipitor. 4. Plavix. EEG FINDINGS: This is a 21-channel digital EEG recorded with video component, utilizing 10/20 international system with referential and bipolar montages. Background consists of well developed, well regulated moderate voltage activity in 10 hertz alpha. Background is posterior dominant and reactive to eye opening and closing. Photic driving response was not seen. Some drowsiness was seen with the presence of symmetric theta frequency rhythm. Deeper stages of sleep were not seen. No focal or generalized epileptiform activity was seen. EKG channel showed no obvious arrhythmia. IMPRESSION: This is a normal awake and drowsy EEG. No focal, lateralized, or epileptiform activity was seen. MMODL / IJN: [id number] /
--- NOTE | 2022-06-19 11:12 | P.PN ---
Subjective Progress Note Date: 06/19/22 Principal diagnosis: Altered mental status changes Patient was seen and examined his follow-up. He was just coming back from EGD. No new focal deficits. Patient scheduled for MRI this afternoon. EEG was normal. Objective - Vital Signs Vital signs: Vital Signs Temp 97.4 F L 06/19/22 08:00 Pulse 56 L 06/19/22 08:00 Resp 16 06/19/22 08:00 BP 160/54 06/19/22 08:00 Pulse Ox 97 06/19/22 08:00 FiO2 Intake & Output 06/18/22 06/19/22 06/19/22 18:59 06:59 18:59 Intake Total 603 Balance 603 Intake: IV 5 Invasive Line 1 5 Oral 598 Other: Voiding Method Urinal Urinal Toilet Urinal # Voids 2 2 1 # Bowel Movements 0 0 - Exam General appearance: The patient is alert, oriented, appears in no acute distress. HET: Head is normocephalic and atraumatic. Pupils are equal and reactive. Neck: Supple. Abdomen: Soft, nontender, nondistended. Extremities: Normal skin color and turgor. No cyanosis, rash, ulceration, clubbing, or edema. Neurological: Slight left facial droop, speech is fluent, patient is alert oriented 3. Extremities with good tone and strength. - Labs CBC & Chem 7: 06/17/22 18:27 06/17/22 18:27 Labs: Abnormal Lab Results - Last 24 Hours (Table) 06/18/22 06/18/22 06/18/22 Range/Units 11:37 16:22 19:38 POC Glucose (mg/dL) 124 H 129 H 146 H (70-110) mg/dL 06/19/22 Range/Units 06:25 POC Glucose (mg/dL) 115 H (70-110) mg/dL Assessment and Plan Assessment: 1. TIA 2. Transient encephalopathy 3. Carotid stenosis reported on carotid duplex and CT angiogram however independently reviewed and bilateral internal carotid arteries are patent, with no significant stenosis noted. 4. History of TIA 5. Diabetes mellitus 6. History of dementia, Parkinson's disorder Plan: 1. No vascular surgical intervention at this time 2. Continue medical management 3. Continue with workup/recommendations from neurology 4. Patient to follow-up as outpatient with vascular surgery Thank you for this consultation, we will sign off at this time. The impression and plan of care has been dictated as directed. I performed a history and examination of this patient, discussed the same with the dictator. I agree with the dictator's note ,documented as a scribe. Any additional findings or plans will be noted.
[2022-06-19 11:52] LABS: Glucose,Whole Blood 182 mg/dL (70-110)
--- NOTE | 2022-06-19 12:22 | CA ---
Transthoracic Echo Report Name: Robbi Hector Age: 86 Gender: M : 1935 Exam Date: 06/19/2022 08:27 Exam Location: [facility] Ht (in): 65 Wt (lb): 167 Ordering Physician: Tanya Dailey MD Attending/Referring Phys: Higher Level Teaching Assistant Lamonte Sanderson Procedure CPT: Indications: tia Cardiac Hx: Technical Quality: Fair Contrast 1: Total Dose (mL): Contrast 2: Total Dose (mL): MEASUREMENTS (Male / Female) Normal Values 2D ECHO LV Diastolic Diameter PLAX 4.6 cm 4.2 - 5.9 / 3.9 - 5.3 cm LV Systolic Diameter PLAX 4.0 cm IVS Diastolic Thickness 1.0 cm 0.6 - 1.0 / 0.6 - 0.9 cm LVPW Diastolic Thickness 1.1 cm 0.6 - 1.0 / 0.6 - 0.9 cm LV Relative Wall Thickness 0.5 RV Internal Dim ED PLAX 2.8 cm LVOT Diameter 2.5 cm LA Systolic Diameter LX 3.3 cm 3.0 - 4.0 / 2.7 - 3.8 cm LV Diastolic Volume MOD BP 72.5 cm??? 67 - 155 / 56 - 104 cm??? LV Systolic Volume MOD BP 24.6 cm??? 22 - 58 / 19 - 49 cm??? LV Ejection Fraction MOD BP 66.1 % >= 55 % LV Diastolic Volume MOD 4C 79.1 cm??? LV Systolic Volume MOD 4C 25.0 cm??? LV Ejection Fraction MOD 4C 68.4 % LV Diastolic Length 4C 7.9 cm LV Systolic Length 4C 6.3 cm LV Diastolic Volume MOD 2C 65.3 cm??? LV Systolic Volume MOD 2C 23.4 cm??? LV Ejection Fraction MOD 2C 64.2 % LV Diastolic Length 2C 7.8 cm LV Systolic Length 2C 5.9 cm Ascending Aorta Diameter 3.5 cm M-MODE Aortic Root Diameter MM 3.0 cm LA Systolic Diameter MM 3.3 cm LA Ao Ratio MM 1.1 MV E Point Septal Separation 1.6 cm AV Cusp Separation MM 1.4 cm DOPPLER AV Peak Velocity 103.4 cm/s AV Peak Gradient 4.3 mmHg AI Peak Velocity 256.8 cm/s AI Peak Gradient 26.4 mmHg AI Pressure Half Time 633.2 ms MR Peak Velocity 331.7 cm/s MR Peak Gradient 44.0 mmHg Mitral E Point Velocity 73.9 cm/s Mitral A Point Velocity 107.0 cm/s Mitral E to A Ratio 0.7 MV Deceleration Time 291.0 ms MV E' Velocity 5.7 cm/s Mitral E to MV E' Ratio 12.9 TR Peak Velocity 89.6 cm/s TR Peak Gradient 3.2 mmHg Right Ventricular Systolic Press 8.2 mmHg PV Peak Velocity 87.8 cm/s PV Peak Gradient 3.1 mmHg FINDINGS Left Ventricle Left ventricular cavity size normal. Normal left ventricle systolic function.normal left ventricular diastolic filling pattern. Right Ventricle Normal right ventricular size and function. Right Atrium Normal right atrial size. Left Atrium Normal left atrial size. Mitral Valve Mitral valve annulus calcification. Mild mitral regurgitation. Aortic Valve Trileaflet aortic valve. Diffuse thickening (sclerosis) and calcified of the aortic valve cusps without reduced excursion. Mild aortic regurgitation. Tricuspid Valve mild tricuspid regurgitation.structurally normal tricuspid valve. Pulmonic Valve Mild pulmonic regurgitation. Pericardium Normal pericardium. No pericardial effusion. Aorta Mildly dilated (3.5 cm) proximal ascending aorta (tube). CONCLUSIONS 1. Normal left ventricle size and systolic function 2. Mild multiple, aortic, tricuspid and pulmonic regurgitation 3. No pericardial effusion Previewed by: Dr. Mahendra Hernandez MD (Electronically Signed) Final Date: 19 June 2022 12:21
--- NOTE | 2022-06-19 13:00 | P.PN ---
Subjective Progress Note Date: 06/19/22 Patient was initially seen by Dr. Shaun Hou. Please refer to his note for details. Patient is a 86-year-old male presented with expressive aphasia and confusion, probable TIA. Patient laying comfortably in the bed. Offers no complaints. He feels back to baseline. Denies any headache. Objective - Vital Signs Vital signs: Vital Signs Temp 97.4 F L 06/19/22 11:19 Pulse 58 L 06/19/22 11:19 Resp 16 06/19/22 11:19 BP 135/76 06/19/22 11:19 Pulse Ox 99 06/19/22 11:19 FiO2 Intake & Output 06/18/22 06/19/22 06/19/22 18:59 06:59 18:59 Intake Total 603 Balance 603 Intake: IV 5 Invasive Line 1 5 Oral 598 Other: Voiding Method Urinal Urinal Toilet Urinal # Voids 2 2 1 # Bowel Movements 0 0 - Exam Patient is alert and awake. Speech and language functions are normal. Patient can name and repeat very well. She knows it is May although feels it is 2002. He knows he is in [facility]. Cranial nerves, pupils are equal, round and reacting, visual wilson are full. Extraocular muscles are intact. Face symmetric. Patient is hard of hearing. Tongue protrudes the midline. On muscle strength testing there is no drift and the strength is normal in arms and legs. Sensations are equal. No ataxia. - Labs CBC & Chem 7: 06/17/22 18:27 06/17/22 18:27 Labs: Abnormal Lab Results - Last 24 Hours (Table) 06/18/22 06/18/22 06/19/22 Range/Units 16:22 19:38 06:25 POC Glucose (mg/dL) 129 H 146 H 115 H (70-110) mg/dL Assessment and Plan Plan: MRI the brain pending. EEG is normal awake and drowsy. No epileptiform activity was seen. 2-D echo revealed normal left ventricular size and systolic function. EF is not documented. Left atrial size is normal. Hemoglobin A1c lipid panel are pending. Patient currently on Lipitor 80 mg daily (taking Lipitor 20 mg at home). TSH 0.924, ammonia level <9. CT angiography of the head and neck is reported as bilateral plaque formation at the carotid artery bifurcation estimated 70% stenosis origin of the right internal carotid artery and 30% stenosis origin left internal carotid artery. No significant change compared to old exam. No significant intracranial angiographic abnormality. Carotid duplex is reported as there is antegrade flow in the vertebral artery. There is elevated velocity in the left internal carotid artery suggestive 50-70% stenosis. There is bilateral plaque formation. There is close to 50% stenosis in the right internal carotid artery. Discordant of carotid stenosis on CTA and carotid duplex (70% right side on CTA, whereas carotid duplex has 50-70% stenosis left ICA): Vascular surgery input appreciated. On their close review, the carotid arteries are patent with no significant stenosis. Recommending medical management. Also recommending patient to follow up in their office as an outpatient. Patient was taking Plavix 75 mg daily at home. Patient has been started on aspirin 81 mg as well. Continue neuro checks Cardiac monitoring Not sure about diagnosis of reported Parkinson's disease as outpatient and per notes not significant symptoms. Defer the rest of the medical management to primary team DVT prophylaxis the patient is on subcu heparin 5000 units every hours area Neurologically clear, and the MRI comes back normal.
--- NOTE | 2022-06-19 13:10 | P.PN ---
Subjective Progress Note Date: 06/19/22 The patient is an 86-year-old male with a PMH of mild dementia, Parkinson's, type II DM, hypertension, hyperlipidemia, history of CVA who presents to the emergency room with complaints of speech impairments. The patient reports that earlier today at around noon, the patient took a nap following a meal, and upon waking, he noticed a mild headache as well as garbled speech. The patient's family as per the documentation and reported that the patient had appeared to be confused at around 1 PM and had an episode of nausea and vomiting, with his symptoms persisting until around 4:30 PM when he developed the garbled speech. The patient states that the symptoms only lasted a few minutes and then resolved completely. He reported feeling at his baseline at the time of interview. The patient denied experiencing visual disturbances or focal weakness. He also denied gait abnormalities. Denied fever, chills, neck pain. The patient underwent an extensive evaluation in the emergency room with a CT brain that revealed findings consistent with microvascular ischemia with no acute abnormalities. CT angiogram of head and neck revealed 70% stenosis of the right ICA with 30% stenosis of the left ICA. An EKG had revealed sinus rhythm with sinus arrhythmia with a right bundle-branch block at 61 bpm. A carotid Doppler study revealed a 50-70% stenosis of the left ICA with 50% stenosis of the the right ICA. Laboratory evaluation was remarkable for leukocytosis of 11.8 and glucose 185. The case was reportedly discussed with the neuro glass vial filler and the neurologist director on air by the ED provider. The patient was deemed to not be a candidate for TPA. A vascular surgery consult was recommended. Patient was seen and examined this morning. His slurred speech and confusion has mostly resolved. He has no other complaints. General: non toxic, no distress, appears at stated age Derm: warm, dry Head: atraumatic, normocephalic, symmetric Eyes: EOMI, no lid lag, anicteric sclera Mouth: no lip lesion, mucus membranes moist Cardiovascular: S1S2 reg, no murmur Lungs: CTA bilateral, no rhonchi, no rales , no accessory muscle use Ext: no gross muscle atrophy, no edema, no contractures Neuro: no focal neuro deficits Psych: Alert, oriented, appropriate affect Aphasia, suspected TIA w/ R ICA stenosis Chronic conditions: Type II DM, hypertension, hyperlipidemia, Parkinson's Based on my assessment of this patient, this patient meets moderate complexity level of care. I have reviewed the following applications sales consultant notes: None. I have reviewed the results of the following tests: Wcehg-te-iltl glucose ranging from 115-182. EEG negative. Echocardiogram shows normal systolic function, mild AV, TV, PV regurgitation. I have ordered the following tests: MRI brain is pending. Hemoglobin A1c and lipid panel pending. I have discussed the care of this patient with the following independent historian: None. I have independently interpreted the following test below: None. I have discussed the management of this patient with the following physician: None. This patient has moderate risk of morbidity due to the following reasons: Patient has an acute diagnosis of TIA that poses a threat to life or bodily function. CT angiogram of head and neck revealed 70% stenosis of the right ICA with 30% stenosis of the left ICA. Neurology and vascular surgery has been consulted. Vascular surgery recommends medical management. CVA workup underway. MRI brain pending. Hemoglobin A1c and lipid panel pending. PT and OT has been consulted to work with this patient. Patient currently on aspirin 81 mg by mouth daily, Lipitor 80 mg by mouth daily, Plavix 75 mg by mouth daily. Telemetry monitoring and advanced neurochecks ordered. Anticipate discharge home after stroke workup is complete. Objective - Vital Signs Vital signs: Vital Signs Temp 97.4 F L 06/19/22 11:19 Pulse 58 L 06/19/22 11:19 Resp 16 06/19/22 11:19 BP 135/76 06/19/22 11:19 Pulse Ox 99 06/19/22 11:19 FiO2 Intake & Output 06/18/22 06/19/22 06/19/22 18:59 06:59 18:59 Intake Total 603 Balance 603 Intake: IV 5 Invasive Line 1 5 Oral 598 Other: Voiding Method Urinal Urinal Toilet Urinal # Voids 2 2 1 # Bowel Movements 0 0 - Labs CBC & Chem 7: 06/17/22 18:27 06/17/22 18:27 Labs: Abnormal Lab Results - Last 24 Hours (Table) 06/18/22 06/18/22 06/19/22 Range/Units 16:22 19:38 06:25 POC Glucose (mg/dL) 129 H 146 H 115 H (70-110) mg/dL 06/19/22 Range/Units 11:24 POC Glucose (mg/dL) 182 H (70-110) mg/dL
[2022-06-19 16:31] VITALS: BP 167/67; PULSE 57; RESP 18; TEMP 97.3
[2022-06-19 17:55] LABS: Glucose,Whole Blood 134 mg/dL (70-110)
--- NOTE | 2022-06-19 18:04 | MR ---
EXAMINATION TYPE: MR brain wo con DATE OF EXAM: 06/19/2022 5:34 PM COMPARISON: 06/17/2022 CT CLINICAL INDICATION:Male, 86 years old with history of CVA TECHNIQUE: Multi planar, multi sequence imaging was performed through the brain including: T1, T2, In version recovery, Diffusion weighted imaging, and gradient echo imaging. No gadolinium was given. FINDINGS: The de la rosa-white junctions, ventricular system, and cisterns appear unremarkable. Scattered foci of high T2 signal intensity are seen within the periventricular white matter. Midline structures show no abnormality. Diffusion-weighted imaging shows no evidence of restricted diffusion. The susce ptibility weighted images do not reveal any evidence for micro-hemorrhage. The bone marrow signal is within normal limits. Paranasal sinuses and mastoid air cells: Mild scattered paranasal sinus disease. Visualized orbits: Bilateral aphakia IMPRESSION: 1. No evidence of intracranial mass or acute/subacute infarct. 2. Nonspecific white matter changes, likely secondary to small vessel ischemic disease.
--- NOTE | 2022-06-19 18:52 | P.DS ---
Providers Date of admission: 06/17/22 19:41 Expected date of discharge: 06/19/22 Attending physician: Tanya Dailey MD Consults: 06/17/22 19:33 Consult Physician Routine Consulting Provider: Pete Chavez Consult Reason/Comments: ICA stenosis Do you want consulting provider notified?: Yes 06/17/22 19:34 Consult Physician Routine Consulting Provider: Shaun Hou Consult Reason/Comments: AMS Do you want consulting provider notified?: Already Contacted Primary care physician: Marcio [facility] Course: The patient is an 86-year-old male with a PMH of mild dementia, Parkinson's, type II DM, hypertension, hyperlipidemia, history of CVA who presents to the emergency room with complaints of speech impairments. The patient reports that earlier today at around noon, the patient took a nap following a meal, and upon waking, he noticed a mild headache as well as garbled speech. The patient's family as per the documentation and reported that the patient had appeared to be confused at around 1 PM and had an episode of nausea and vomiting, with his symptoms persisting until around 4:30 PM when he developed the garbled speech. The patient states that the symptoms only lasted a few minutes and then resolved completely. He reported feeling at his baseline at the time of interview. The patient denied experiencing visual disturbances or focal weakness. He also denied gait abnormalities. Denied fever, chills, neck pain. The patient underwent an extensive evaluation in the emergency room with a CT brain that revealed findings consistent with microvascular ischemia with no acute abnormalities. CT angiogram of head and neck revealed 70% stenosis of the right ICA with 30% stenosis of the left ICA. An EKG had revealed sinus rhythm with sinus arrhythmia with a right bundle-branch block at 61 bpm. A carotid Doppler study revealed a 50-70% stenosis of the left ICA with 50% stenosis of the the right ICA. Laboratory evaluation was remarkable for leukocytosis of 11.8 and glucose 185. The case was reportedly discussed with the neuro car body designer and the neurologist ammunition specialist by the ED provider. The patient was deemed to not be a candidate for TPA. A vascular surgery consult was recommended. Vascular surgery recommended medical management and outpatient follow-up. Neurology was consulted and stroke workup was pursued. Patient was seen and examined this morning. His slurred speech and confusion has mostly resolved. He has no other complaints. Echocardiogram shows normal systolic function, mild AV, TV, PV regurgitation. EEG was negative for seizures. Brain MRI was negative for CVA. Patient was advised to continue aspirin, Plavix and Lipitor. He is advised to follow-up with his PCP within 1-2 days of discharge. He is advised to follow-up with neurology and vascular surgery within 1 week of discharge. Pertinent studies include brain CT, CTA head and neck, carotid Doppler, echocardiogram, EEG, brain MRI. 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 Patient Condition at Discharge: Stable Plan - Discharge Summary Discharge Rx Participant: No New Discharge Prescriptions: New Aspirin 81 mg PO DAILY #30 tab Atorvastatin [Lipitor] 80 mg PO DAILY #30 tab Clopidogrel [Plavix] 75 mg PO DAILY #30 tab Continue metFORMIN HCL [Glucophage] 500 mg PO DAILY amLODIPine [Norvasc] 5 mg PO DAILY Cholecalciferol [Vitamin D3 (25 Mcg = 1000 Iu)] 25 mcg PO DAILY lisinopriL [Zestril] 10 mg PO DAILY Discontinued Atorvastatin [Lipitor] 20 mg PO DAILY Clopidogrel Bisulfate [Plavix] 75 mg PO DAILY #30 tab Discharge Medication List amLODIPine [Norvasc] 5 mg PO DAILY 12/16/19 [History] metFORMIN HCL [Glucophage] 500 mg PO DAILY 12/16/19 [History] Cholecalciferol [Vitamin D3 (25 Mcg = 1000 Iu)] 25 mcg PO DAILY 06/17/22 [History] lisinopriL [Zestril] 10 mg PO DAILY 06/17/22 [History] Aspirin 81 mg PO DAILY #30 tab 06/19/22 [Rx] Atorvastatin [Lipitor] 80 mg PO DAILY #30 tab 06/19/22 [Rx] Clopidogrel [Plavix] 75 mg PO DAILY #30 tab 06/19/22 [Rx] Follow up Appointment(s)/Referral(s): Caro Virgen MD [REFERRING] - 1 Week Pete Chavez DO [STAFF PHYSICIAN] - 1 Week Marcio Stein DO [Primary Care Provider] - 1-2 days Patient Instructions/Handouts: Transient Ischemic Attack (GEN) Activity/Diet/Wound Care/Special Instructions: Diet: Cardiac Follow-up with your PCP within 1-2 days of discharge. Follow-up with vascular surgery and neurology within 1 week of discharge. Take all medications as advised. Come back to the ED for slurred speech, facial droop, worsening confusion, numbness/weakness/tingling of the extremities. Discharge Disposition: HOME SELF-CARE
[2022-06-19 19:36] LABS: Chol/HDL Ratio 2.82 Ratio; LDL Cholesterol,Calculated 41.9 mg/dL (0.0-131.0)
== END 2022-06-19 19:31 | disposition home or self-care (01) ==
LOC: EC 18:03 → 3SCARD 19:41
PROVIDERS: ADMIT Internal Medicine; ATTEND Internal Medicine
DX: R47.01 Aphasia (principal); I65.23 Occlusion and stenosis of bilateral carotid arteries; E51.2 Wernicke's encephalopathy; G20 Parkinson's disease; F02.A0 Dementia in other diseases classified elsewhere, mild, without behavioral disturbance, psychotic disturbance, mood disturbance, and anxiety; I10 Essential (primary) hypertension; E78.5 Hyperlipidemia, unspecified; I25.10 Atherosclerotic heart disease of native coronary artery without angina pectoris; K21.9 Gastro-esophageal reflux disease without esophagitis; N40.0 Benign prostatic hyperplasia without lower urinary tract symptoms; E11.9 Type 2 diabetes mellitus without complications; G89.29 Other chronic pain; M54.50 Low back pain, unspecified; I25.2 Old myocardial infarction; Z20.822 Contact with and (suspected) exposure to COVID-19; Z86.73 Personal history of transient ischemic attack (TIA), and cerebral infarction without residual deficits; Z95.5 Presence of coronary angioplasty implant and graft; Z79.02 Long term (current) use of antithrombotics/antiplatelets; Z79.82 Long term (current) use of aspirin; Z79.84 Long term (current) use of oral hypoglycemic drugs; Z79.899 Other long term (current) drug therapy
CPT/HCPCS: 96372 ×2; 96374; 99285; 36415; 95816; 93005; 93306; 97162; 92610; 92523; 80061; 80053; 84443; 82140; 84484; 85025; 85610; 85730; 83036; 87636; 93880; 70496; 70450; 70498; 70551; G0378 ×3; J2405; Q9967; J1644 ×2

== ENCOUNTER 2022-09-23 19:22 | Emergency (ER) | payer MEDICARE ==
[2022-09-23 19:32] VITALS: TEMP 97.5
[2022-09-23] MEDS ORDERED: ACETAMINOPHEN TAB 500 MG TAB PO STA (20:05)
[2022-09-23] MEDS ORDERED: SODIUM CHLORIDE 0.9% 500 ML 500 ML IV ONE (20:05)
[2022-09-23] MEDS ORDERED: HYDROmorphone 0.5 MG/0.5 ML SYRINGE IVP STA ×2 (20:05→23:42)
--- NOTE | 2022-09-23 20:19 | ED ---
General Adult HPI - General Chief complaint: Headache Stated complaint: Headache Time Seen by Provider: 09/23/22 19:40 Source: patient, family, EMS, RN notes reviewed, old records reviewed Mode of arrival: EMS Limitations: no limitations - History of Present Illness Initial comments: 87-year-old male history dementia and chronic headache presenting for evaluation of headache and eye pain. The patient has had recurrent episodes of intermittent bilateral eye pain and headache. He's been seen by ophthalmology as recently as one week ago. No diagnosis of glaucoma. He was told that he had a small tear in his retina. He denies visual changes. Denies measured fever. No vomiting. No focal numbness or weakness. History somewhat limited from the patient and her the patient's and son are at bedside. They have not been told in exact diagnosis of his headache or his eye pain. This headache has been ongoing for months. He has seen primary care and ophthalmology. He has seen a neurologist for evaluation of dementia but not for this headache. - Related Data Home Medications Medication Instructions Recorded Confirmed amLODIPine [Norvasc] 5 mg PO DAILY 12/16/19 06/17/22 metFORMIN HCL [Glucophage] 500 mg PO DAILY 12/16/19 06/17/22 Cholecalciferol [Vitamin D3 (25 25 mcg PO DAILY 06/17/22 06/17/22 Mcg = 1000 Iu)] lisinopriL [Zestril] 10 mg PO DAILY 06/17/22 06/17/22 Previous Rx's Medication Instructions Recorded Aspirin 81 mg PO DAILY #30 tab 06/19/22 Atorvastatin [Lipitor] 80 mg PO DAILY #30 tab 06/19/22 Clopidogrel [Plavix] 75 mg PO DAILY #30 tab 06/19/22 Gabapentin 300 mg PO BID 15 Days #30 cap 09/23/22 Allergies Allergy/AdvReac Type Severity Reaction Status Date / Time No Known Allergies Allergy Verified 06/17/22 18:47 Review of Systems ROS Statement: Those systems with pertinent positive or pertinent negative responses have been documented in the HPI. ROS Other: All systems not noted in ROS Statement are negative. Past Medical History Past Medical History: Coronary Artery Disease (CAD), Diabetes Mellitus, Eye Disorder, GERD/Reflux, Hearing Disorder / Deafness, Hypertension, Memory I mpairment, Myocardial Infarction (OR), Prostate Disorder Additional Past Medical History / Comment(s): has 'pouch' in throat that affects ability to swallow, will nto have fixed. 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 Last Myocardial Infarction Date:: 2003 History of Any Multi-Drug Resistant Organisms: None Reported Past Surgical History: Tonsillectomy Additional Past Surgical History / Comment(s): heart cath with stents, bilateral knee surgery, bilateral cataract removal, right eye "burned a hole", replaced lens, had left foot surgery in the s Past Anesthesia/Blood Transfusion Reactions: No Reported Reaction Additional Past Anesthesia/Blood Transfusion Reaction / Comment(s): hypotension with anesthesia Past Psychological History: No Psychological Hx Reported Smoking Status: Never smoker Past Alcohol Use History: None Reported Past Drug Use History: None Reported - Past Family History Mother Family Medical History: Coronary Artery Disease (CAD) Father Family Medical History: Coronary Artery Disease (CAD) General Exam Limitations: no limitations General appearance: alert, in no apparent distress Head exam: Present: atraumatic, normocephalic Eye exam: Present: PERRL, EOMI, other (Yellowish mass on the lateral aspect of both eyes. No proptosis, normal range of motion) Neck exam: Present: normal inspection. Absent: tenderness Respiratory exam: Present: normal lung sounds bilaterally. Absent: respiratory distress, wheezes Cardiovascular Exam: Present: regular rate, normal rhythm GI/Abdominal exam: Present: soft. Absent: distended, tenderness, guarding Extremities exam: Present: normal inspection, normal capillary refill. Absent: pedal edema Neurological exam: Present: alert. Absent: motor sensory deficit Skin exam: Present: warm, dry, intact Course Vital Signs 09/23/22 09/23/22 09/23/22 19:24 19:29 19:30 Temperature 97.5 F L Pulse Rate 58 L 57 L Respiratory 18 17 Rate Blood Pressure 168/78 O2 Sat by Pulse 99 97 99 Oximetry 09/23/22 09/23/22 09/23/22 20:00 20:30 21:00 Temperature Pulse Rate 63 55 L 67 Respiratory 16 18 17 Rate Blood Pressure 130/86 167/78 O2 Sat by Pulse 100 99 98 Oximetry Medical Decision Making - Medical Decision Making Was pt. sent in by a medical professional or institution (, PA, SPRINKLING SYSTEM INSTALLER, urgent care, hospital, or halfway...) When possible be specific @ -[No] Did you speak to anyone other than the patient for history (EMS, parent, family, police, friend...)? What history was obtained from this source @ -[Patient's and son Did you review nursing and triage notes (agree or disagree)? Why? @ -[I reviewed and agree with nursing and triage notes] Were old charts reviewed (outside hosp., previous admission, EMS record, old EKG, old radiological studies, urgent care reports/EKG's, halfway records)? Report findings @ -[No old charts were reviewed] Differential Diagnosis (chest pain, altered mental status, abdominal pain women, abdominal pain men, vaginal bleeding, weakness, fever, dyspnea, syncope, headac he, dizziness, GI bleed, back pain, seizure, CVA, palpatations, mental health, musculoskeletal)? @ -[Differential Headache: Migraine, tension, cluster, carbon monoxide, central venous thrombosis, pension karma temporal arteritis, acute closure glaucoma, intercranial hemorrhage, mastoiditis, sinusitis, head injury, this is not meant to be an all-inclusive list. EKG interpreted by me (3pts min.). @ -[As above] X-rays interpreted by me (1pt min.). @ -[None done] CT interpreted by me (1pt min.). @ -CT showing chronic changes without acute process U/S interpreted by me (1pt. min.). @ -[None done] What testing was considered but not performed or refused? (CT, X-rays, U/S, labs)? Why? @ -[None] What meds were considered but not given or refused? Why? @ -[None] Did you discuss the management of the patient with other professionals (professionals i.e. , PA, SPRINKLING SYSTEM INSTALLER, lab, RT, psych nurse, social problems specialist, certified dental assistant, teacher, public service officer, immigration case manager)? Give summary @ -[No] Was smoking cessation discussed for >3mins.? @ -[No] Was critical care preformed (if so, how long)? @ -[No] Were there social determinants of health that impacted care today? How? (Homelessness, low income, unemployed, alcoholism, drug addiction, transportation, low edu. Level, literacy, decrease access to med. care, shelter, rehab)? @ -[No] Was there de-escalation of care discussed even if they declined (Discuss DNR or withdrawal of care, Hospice)? DNR status @ -[No] What co-morbidities impacted this encounter? (DM, HTN, Smoking, COPD, CAD, Cancer, CVA, ARF, Chemo, Hep., AIDS, mental health diagnosis, sleep apnea, morbid obesity)? @ -[Chronic pain Was patient admitted / discharged? Hospital course, mention meds given and [place], prescriptions, significant lab abnormalities, going to OR and other pertinent info. @ 87-year-old male with chronic headache. Patient has a nonfocal exam. Stable vitals. Normal CBC, normal CMP, negative CRP. Patient should follow with neurology. We will trial gabapentin for pain. Undiagnosed new problem with uncertain prognosis? @ -[No] Drug Therapy requiring intensive monitoring for toxicity (Heparin, Nitro, I nsulin, Cardizem)? @ -[No] Were any procedures done? @ -[No] Diagnosis/symptom? @ -[Headache Acute, or Chronic, or Acute on Chronic? @ Chronic Uncomplicated (without systemic symptoms) or Complicated (systemic symptoms)? @ -[default] Side effects of treatment? @ -[No] Exacerbation, Progression, or Severe Exacerbation? @ -[No] Poses a threat to life or bodily function? How? (Chest pain, USA, OR, pneumonia, PE, COPD, DKA, ARF, appy, cholecystitis, CVA, Diverticulitis, Homicidal, Suicidal, threat to staff... and all critical care pts) @ Low-risk - Lab Data Result diagrams: 09/23/22 20:18 09/23/22 20:18 Lab Results 09/23/22 09/23/22 Range/Units 20:18 20:18 WBC 8.7 (3.8-10.6) k/uL RBC 4.42 (4.30-5.90) m/uL Hgb 13.7 (13.0-17.5) gm/dL Hct 40.1 (39.0-53.0) % MCV 90.7 (80.0-100.0) fL MCH 30.9 (25.0-35.0) pg MCHC 34.1 (31.0-37.0) g/dL RDW 12.9 (11.5-15.5) % Plt Count 217 (150-450) k/uL MPV 7.9 Neutrophils % 82 % Lymphocytes % 11 % Monocytes % 5 % Eosinophils % 0 % Basophils % 0 % Neutrophils # 7.1 (1.3-7.7) k/uL Lymphocytes # 0.9 L (1.0-4.8) k/uL Monocytes # 0.4 (0-1.0) k/uL Eosinophils # 0.0 (0-0.7) k/uL Basophils # 0.0 (0-0.2) k/uL Sodium 137 (137-145) mmol/L Potassium 4.6 (3.5-5.1) mmol/L Chloride 102 (98-107) mmol/L Carbon Dioxide 25 (22-30) mmol/L Anion Gap 10 mmol/L BUN 22 H (9-20) mg/dL Creatinine 1.28 H (0.66-1.25) mg/dL Est GFR (CKD-EPI)AfAm 58 (>60 ml/min/1.73 sqM) Est GFR (CKD-EPI)NonAf 50 (>60 ml/min/1.73 sqM) Glucose 159 H (74-99) mg/dL Calcium 10.0 (8.4-10.2) mg/dL Total Bilirubin 1.1 (0.2-1.3) mg/dL AST 44 (17-59) U/L ALT 50 H (4-49) U/L Alkaline Phosphatase 79 (38-126) U/L C-Reactive Protein <0.5 (<1.0) mg/dL Total Protein 7.6 (6.3-8.2) g/dL Albumin 4.6 (3.5-5.0) g/dL Disposition Clinical Impression: Chronic headache Disposition: HOME SELF-CARE Condition: Fair Instructions (If sedation given, give patient instructions): Acute Headache (ED) Prescriptions: Gabapentin 300 mg PO BID 15 Days #30 cap Is patient prescribed a controlled substance at d/c from ED?: No Referrals: Marcio Stein DO [Primary Care Provider] - 1-2 days Boo Walters DO [STAFF PHYSICIAN] - 1-2 days Time of Disposition: 22:44
[2022-09-23] MEDS ORDERED: ONDANSETRON 4 MG/2 ML VIAL IVP STA (20:22)
--- NOTE | 2022-09-23 20:40 | CT ---
EXAMINATION TYPE: CT brain wo con DATE OF EXAM: 09/23/2022 COMPARISON: 12/17/2019 INDICATION: worsening headache x a week. N/V. DLP: 1158.7 mGycm, Automated exposure control for dose reduction was used. CONTRAST: None CT of the brain is performed utilizing 3 mm thick sections through the posterior fossa and 3 mm thick sections through the remaining calvarium. Study is performed within 24 hours of arrival to the hosp [place]. No abnormal hyperdensity is present to suggest an acute intracranial hemorrhage. No mass lesion is evident. No acute infarcts are evident. There is periventricular white matter hypodensity, likely on the basis of chronic white matter ischemic changes. Findings are similar to comparison Ventricles and sulci are appropriate for the patient age. Paranasal sinuses and mastoid air cells within the [id number] are clear. IMPRESSIONS: 1. No acute intracranial process. Follow-up MRI can be performed as clinically indicated. 2. Atrophy with chronic appearing periventricular white matter ischemic changes.
[2022-09-23 20:48] LABS: Basophils % (A) 0 %; Eosinophils % (A) 0 %; HCT 40.1 % (39.0-53.0); HGB 13.7 gm/dL (13.0-17.5); Lymphocytes # (A) 0.9 k/uL (1.0-4.8); Lymphocytes % (A) 11 %; MCH 30.9 pg (25.0-35.0); MCHC 34.1 g/dL (31.0-37.0); MCV 90.7 fL (80.0-100.0); Mean Platelet Volume 7.9; Monocytes # (A) 0.4 k/uL (0-1.0); Monocytes % (A) 5 %; Neutrophils # (A) 7.1 k/uL (1.3-7.7); Neutrophils % (A) 82 %; Platelet Count 217 k/uL (150-450); RBC 4.42 m/uL (4.30-5.90); RDW 12.9 % (11.5-15.5); WBC 8.7 k/uL (3.8-10.6)
[2022-09-23 21:10] LABS: ALT 50 U/L (4-49); AST 44 U/L (17-59); African American GFR (CKD) 58 (>60 ml/min/1.73 sqM); Albumin 4.6 g/dL (3.5-5.0); Alkaline Phosphatase 79 U/L (38-126); Anion Gap 10 mmol/L; Blood Urea Nitrogen 22 mg/dL (9-20); C Reactive Protein <0.5 mg/dL (<1.0); Carbon Dioxide 25 mmol/L (22-30); Chloride 102 mmol/L (98-107); Glucose 159 mg/dL (74-99); Non-African American GFR(CKD) 50 (>60 ml/min/1.73 sqM); Potassium 4.6 mmol/L (3.5-5.1); Sodium 137 mmol/L (137-145); Total Bilirubin 1.1 mg/dL (0.2-1.3); Total Protein 7.6 g/dL (6.3-8.2)
[2022-09-23 21:25] VITALS: RESP 17
[2022-09-23 23:04] LABS: Erythrocyte Sedimentation Rate 5 mm/hr (0-15)
[2022-09-23 23:54] VITALS: BP 165/83; PULSE 70
== END 2022-09-23 23:54 | disposition home or self-care (01) ==
LOC: EC 19:22
DX: G89.29 Other chronic pain (principal); R51.9 Headache, unspecified; E11.9 Type 2 diabetes mellitus without complications; I10 Essential (primary) hypertension; I25.10 Atherosclerotic heart disease of native coronary artery without angina pectoris; I25.2 Old myocardial infarction; Z79.84 Long term (current) use of oral hypoglycemic drugs; Z79.899 Other long term (current) drug therapy
CPT/HCPCS: 36415; 80053; 85652; 85025; 86140; 70450; 99284; 96374; 96375; 96376; 96361; J2405; J1170